=== PATIENT | female | born 1960 | race American Indian/Alaskan Native ===

== ENCOUNTER 2017-04-10 14:54 | Inpatient (IN) | payer MEDICARE ==
--- NOTE | 2017-04-10 17:17 | C.PDOC ---
History Of Present Illness 56 year old female brought in to the emergency department by parents requesting detox of heroin. Patient complains of heroin withdrawal, last used 2 bags intranasally about 1 hour ago. Typically she uses 10 bags daily. Also complaining of diarrhea that started yesterday. Denies any chest pain, abdominal pain, shortness of breath, or vomiting. Of note, patient is scheduled for dialysis tonight. No suicidal or homicidal ideation. Time Seen by Provider: 04/10/17 16:51 Chief Complaint (Nursing): Substance Abuse History Per: Patient History/Exam Limitations: no limitations Suicide/Self Injury Attempted (Context): None Modifying Factor(s): Other (Heroin) Associated Symptoms: denies: Suicidal Thoughts Additional History Per: Family (parents) Past Medical History Reviewed: Historical Data, Nursing Documentation, Vital Signs Vital Signs: Last Vital Signs Temp 98.3 F 04/10/17 20:13 Pulse 64 04/10/17 20:13 Resp 18 04/10/17 20:13 BP 140/89 04/10/17 20:13 Pulse Ox 96 04/10/17 20:13 - Medical History PMH: Hepatitis (C), HTN, End Stage Renal Disease Other PMH: Substance abuse Family History: States: No Known Family Hx - Social History Hx Alcohol Use: No Hx Substance Use: Yes - Immunization History Hx Tetanus Toxoid Vaccination: No Hx Influenza Vaccination: No Hx Pneumococcal Vaccination: No Review Of Systems Except As Marked, All Systems Reviewed And Found Negative. Cardiovascular: Negative for: Chest Pain Respiratory: Negative for: Shortness of Breath Gastrointestinal: Positive for: Diarrhea. Negative for: Vomiting, Abdominal Pain Psych: Positive for: Withdrawal (from heroin use). Negative for: Suicidal ideation (or homicidal ideation) Physical Exam - Physical Exam Appears: Non-toxic, No Acute Distress Skin: Normal Color, Warm, Dry Head: Atraumatic, Normacephalic Eye(s): bilateral: PERRL (pupils are pinpoint), EOMI Oral Mucosa: Moist Neck: Normal ROM, Supple Chest: Symmetrical Cardiovascular: Rhythm Regular Respiratory: Normal Breath Sounds, No Accessory Muscle Use Gastrointestinal/Abdominal: Normal Exam, Soft, No Tenderness, No Guarding, No Rebound Extremity: Normal ROM, No Tenderness, No Deformity, No Swelling, Other (AV fistula noted at left arm) Neurological/Psych: Oriented x3, Normal Speech Gait: Steady ED Course And Treatment - Laboratory Results Lab Interpretation: Abnormal (tox + benzo, opiates) Urine POC: Negative (UA neg.) ECG: Interpreted By Me, Viewed By Me ECG Rhythm: Sinus Rhythm ECG Interpretation: Normal Rate From EC O2 Sat by Pulse Oximetry: 96 (RA) Pulse Ox Interpretation: Normal Reevaluation Time: 19:54 Reassessment Condition: Improved - Physician Consult Information Outcome Of Conversation: 1800: d/w Dr. Ceja- pt's [facility]- usual dialysis orders are 4 hours, 2K+, 2 liter loss. 1929: d/w Dr. Laird- Neprhology [facility] - will order HD for tonight. 1999: d/w Crisis- initially admitted to Dr. Marrero , now admitted to Dr. Lozano- Psych, w Nephrology (Dr. Laird) and Medicine ( Hospitalists) to follow pt while in detox. Medical Decision Making Medical Decision Making: Time: 16:55 Initial Plan: * Urine drug screen * Alcohol serum * CMP * CBC * Urinalysis * HCG, qualitative * Crisis evaluation Time: 18:[address] Ceja, patients merchandising consultant, and patient receives dialysis on MWF nights. Usual dialysis is 4 hours, 2K, and decreased 2L. Disposition Doctor Will See Patient In The: Hospital Counseled Patient/Family Regarding: Studies Performed, Diagnosis - Disposition Disposition: HOSPITALIZED Disposition Time: 19:57 Condition: GOOD - Clinical Impression Clinical Impression: Heroin abuse, Renal dialysis status - Scribe Statement The provider has reviewed the documentation as recorded by the Shilpa Tee Provider Attestation: All medical record entries made by the Shilpa were at my direction and personally dictated by me. I have reviewed the chart and agree that the record accurately reflects my personal performance of the history, physical exam, medical decision making, and the department course for this patient. I have also personally directed, reviewed, and agree with the discharge instructions and disposition.
[2017-04-10 18:57] LABS: HCG,QUALITATIVE URINE NEGATIVE (NEGATIVE)
[2017-04-10 19:01] LABS: SQUAMOUS EPITHIAL 3 /hpf (0-5); URINE BACTERIA RARE (<OCC); URINE BILIRUBIN NEGATIVE (NEGATIVE); URINE BLOOD 1+ (NEGATIVE); URINE CLARITY Clear (Clear); URINE COLOR Straw (YELLOW); URINE GLUCOSE (UA) 2+ mg/dL (Normal); URINE LEUKOCYTE ESTERASE NEG Leu/uL (Negative); URINE NITRATE NEGATIVE (NEGATIVE); URINE PROTEIN 2+ mg/dL (NEGATIVE); URINE UROBILINOGEN NORMAL mg/dL (0.2-1.0)
[2017-04-10 19:13] LABS: BARBITURATES, UR NEGATIVE (NEGATIVE); BENZODIAZEPINES, UR POSITIVE (NEGATIVE); OPIATES, UR POSITIVE (NEGATIVE); PHENCYCLIDINE, UR NEGATIVE (NEGATIVE)
[2017-04-10] MEDS ORDERED: DiphenhydrAMINE 50 mg/ml Inj IVP ONE (21:00)
[2017-04-10 21:13] LABS: BASO # 0.1 K/uL (0.0-0.2); BASO % 0.9 % (0.0-2.0); EOS # 0.2 K/uL (0.0-0.7); EOS % 3.7 % (0.0-4.0); HEMOGLOBIN 10.8 g/dL (11.0-16.0); LYMPH % 34.7 % (20.0-40.0); MEAN CELL VOLUME 86.4 fL (81.0-99.0); MEAN CORPUSCULAR HGB CONC 32.4 g/dL (33.0-37.0); MONO # 0.4 K/uL (0.0-0.8); MONO % 7.6 % (0.0-10.0); NEUT # 3.1 K/uL (1.8-7.0); NEUT % 53.1 % (50.0-75.0); RBC 3.88 Mil/uL (3.80-5.20); RED CELL DISTRIBUTION WIDTH 14.6 % (11.5-14.5); WHITE BLOOD COUNT 5.8 K/uL (4.8-10.8)
[2017-04-10 21:27] LABS: ALB/GLOB RATIO 1.1 (1.0-2.1); ALBUMIN 3.8 g/dL (3.5-5.0); ALT/SGPT 34 U/L (9-52); AST/SGOT 33 U/L (14-36); BLOOD UREA NITROGEN 61 mg/dL (7-17); CALCIUM 8.8 mg/dl (8.6-10.4); GFR AFRICAN-AMERICAN 4; GFR NON-AFRICAN AMERICAN 3
[2017-04-10] MEDS ORDERED: Aluminum Hydroxide/Magnesium Hydroxide Susp (30 mL) PO PRN (22:52)
--- NOTE | 2017-04-11 05:44 | PCM.BM ---
<Deepti Stuart - Last Filed: 04/11/17 05:43> Treatment Plan Problems - Problems identified on initial assessmt Opiates Abuse Date Initiated: 04/10/17 Time Initiated: 23:45 Assessment reference: NA Status: Active Benzo Abuse Date Initiated: 04/10/17 Time Initiated: 23:45 Assessment reference: NA Status: Active Treatment assets and liabiliti Patient Assests: adapts well, ADL independent Patient Liabilities: substance abuse (Benzo, opiates), medical problems (Kidney dialysis) - Milieu Protocol Maintain good personal hygiene: daily Encourage regular showers, daily Remind patient to perform daily oral care Conduct patient checks and document Observation sheet: Q15 minutes Maintain personal safety: every shift Educate patient to report safety concerns to staff, every shift Monitor environment for contraband/sharps Medication safety: Monitor for expected outcome, potential side effects: every shift, Assess barriers to learning: every shift, Assess readiness for medication education: every shift <Deloris Weber - Last Filed: 04/12/17 08:14> Family Contact Family involvement: Yevgeniyliy/SO not involved - Goals for Treatment Patient goals for treatment: Complete detox and transition to outpatient counseling program. Discharge/Continuing Care - Education Needs Education Needs: Patient Medication, Patient Diagnosis/Disease Process, Patient Coping Skills, Patient Anger Management skills, Patient Placement options, Patient Community resources - Discharge Discharge Criteria: No longer exhibiting s/s of withdrawal, Reduction of target symptoms Discharge to:: Home, With Family - Treatment Team Participation Patient/Family/SO Statement: 04/12/17 08:15 "I wanna go to outpatient near my house..." Discussed with Family/SO: No Was Patient/Family/SO present at Treatment Team Meeting: Yes <Kati Lozano - Last Filed: 04/13/17 13:11> - Diagnosis (1) Opioid use disorder, severe, dependence Status: Acute Interventions: 04/13/17 13:11 * Assess 7x/week regarding severity of withdrawal * Educate regarding risks, benefits, side effects and alternatives of medications * Use Motivational Interviewing for abstinence * Use CBT for relapse prevention * Medication management for withdrawal symptoms * Encourage medication assisted treatment *
[2017-04-11] MEDS: Multiple Vitamins Tab PO SCH (10:35)
[2017-04-11] MEDS: Multivitamin Vitamin B Complex (Nephro-Vite) Tab PO SCH (10:35)
--- NOTE | 2017-04-11 11:08 | CP.PCM.CON ---
History of Present Illness - History of Present Illness History of Present Illness: Initial Nephrology Consultation: Assessment: Stable drug abuse Hypertensive Chronic Kidney Disease (I12.0) End stage renal disease (N18.6) dependence on hemodialysis (Z99.2) (MWF) via AVF Anemia (D64.9), Hyperphosphatemia (E83.39), Secondary Hyperparathyroidism (E21.1 ), HTN (I12.0) Plan: No acute need for dialysis today. Will plan for dialysis tomorrow. Continue with Nephrovite 1 tab/day. PRBC as needed for anemia. not on KAITLYNN as, last Hb 10.8 Continue with phos binders home dose BP control with meds as ordered. Glycemic control, Dialysis consistent diet Further work up/management as per primary team Dose meds/antibiotics (if needed) for ESRD status. Avoid fleets enema/magnesium based laxatives. Thanks for allowing me to participate in care of your patient. Will follow patient with you. Please call if any Qs Dr Ilan Raymundo Office: [phone] Chief Complaint;drug addiction HPI: Pt is a 56 F with hx of ESRD on hemodialysis (MWF) via AVF, last dialysis last night, chronic anemia, hyperphosphatemia, secondary hyperparathyroidism, hypertension, drug abuse presented with complaints of drug abuse and detox. she denies CP/SOB. has been on HD since 2017 @ [facility] Ceja ROS: Cardiovascular: No chest pain. Pulmonary: No shortness of breath Gastrointestinal: denies abdominal pain No nausea. No vomiting. Genitourinary: No pain while urinating. Denies blood in urine. All other negative Physical Examination: General Appearance: Comfortable, in no acute respiratory distress, co-operative . Vitals reviewed and noted as below Head; Atraumatic, normocephalic ENT: no ulcers no thrush. Tongue is midline. Oropharynx: no rash or ulcers. EYES: Pupils are equal, round and reactive to light accommodation. Eye muscles and extraocular movement intact. Sclera is anicteric. Neck; supple no lymphadenopathy, no thyromegaly or bruit Lungs: Normal respiratory rate/effort. Breath sounds bilateral equal and clear Heart: Normal rate. s1s2 normal. No rub or gallop. Extremities: 1+ edema. No varicose veins Neurological: Patient is alert, awake and oriented to person, place and time. No focal deficit. Strength bilateral appropriate and equal Skin: Warm and dry. Normal turgor. No rash. Palpitation: Normal elasticity for age Abdomen: Abdomen is soft. Bowel sounds +. There is no abdominal tenderness, no guarding/rigidity or organomegaly Psych: normal insight and normal affect/mood MSK: no joint tenderness or swelling. Digits and nails normal, no deformity : kidney or bladder not palpable Access: AVF Labs/imaging reviewed. Past medical history, past surgical history, family history, social history, allergy reviewed and noted as below Family Hx: no hx of CKD. Non contributory Past Patient History - Past Social History Smoking Status: Never Smoked - CARDIAC Hx Hypertension: Yes - PULMONARY Hx Tuberculosis: No - NEUROLOGICAL HX Cerebrovascular Accident: No Hx Seizures: No - RENAL Hx Dialysis: Yes - HEMATOLOGICAL/ONCOLOGICAL Hx Cancer: No Hx Human Immunodeficiency Virus (HIV): No - MUSCULOSKELETAL/RHEUMATOLOGICAL Hx Falls: No - GENITOURINARY/GYNECOLOGICAL Hx Sexually Transmitted Disorders: No - PSYCHIATRIC Hx Substance Use: Yes Meds Allergies/Adverse Reactions: Allergies Allergy/AdvReac Type Severity Reaction Status Date / Time No Known Allergies Allergy Verified 04/10/17 15:27 - Medications Medications: Current Medications Al Hydrox/Mg Hydrox/Simethicone (Maalox 30 Ml) 30 ml PO TID PRN PRN Reason: Indigestion / Heartburn Calcium Acetate (Phoslo) 667 mg PO BIDCC [facility] Last Admin: 04/11/17 09:10 Dose: 667 mg Clonidine HCl (Catapres) 0.2 mg PO TID [facility] Last Admin: 04/11/17 10:35 Dose: 0.2 mg Hydroxyzine HCl (Atarax) 25 mg PO Q6H PRN PRN Reason: Anxiety Loperamide HCl (Imodium) 2 mg PO Q8 PRN PRN Reason: Diarrhea Lorazepam (Ativan) 1 mg PO Q6H [facility] PRN Reason: Taper Stop: 04/15/17 23:54 Last Admin: 04/11/17 06:30 Dose: 1 mg Multivitamins (Hexavitamin) 1 tab PO DAILY [facility] Last Admin: 04/11/17 10:35 Dose: 1 tab Ondansetron HCl (Zofran Tab) 4 mg PO Q8 PRN PRN Reason: Nausea/Vomiting Trazodone HCl (Desyrel) 50 mg PO HS PRN PRN Reason: Insomnia Last Admin: 04/11/17 01:32 Dose: 50 mg Vitamin B Complex/Vit C/Folic Acid (Nephro-Viktor) 1 tab PO DAILY IRAM Last Admin: 04/11/17 10:35 Dose: 1 tab Results - Vital Signs Recent Vital Signs: Last Vital Signs Temp 98.6 F 04/11/17 10:00 Pulse 95 H 04/11/17 10:00 Resp 18 04/11/17 10:00 BP 135/89 04/11/17 10:00 Pulse Ox 95 04/11/17 10:00 - Labs Result Diagrams: 04/10/17 21:09 04/10/17 21:09 Labs: Laboratory Results - last 24 hr 04/10/17 04/10/17 04/10/17 18:52 18:52 21:09 WBC 5.8 RBC 3.88 Hgb 10.8 L Hct 33.5 L MCV 86.4 MCH 28.0 MCHC 32.4 L RDW 14.6 H Plt Count 190 MPV 9.0 Neut % (Auto) 53.1 Lymph % (Auto) 34.7 [place] % (Auto) 7.6 Eos % (Auto) 3.7 Baso % (Auto) 0.9 Neut # (Auto) 3.1 Lymph # (Auto) 2.0 [place] # (Auto) 0.4 Eos # (Auto) 0.2 Baso # (Auto) 0.1 Sodium Potassium Chloride Carbon Dioxide Anion Gap BUN Creatinine Est GFR ( Amer) Est GFR (Non-Af Amer) Random Glucose Calcium Total Bilirubin AST ALT Alkaline Phosphatase Total Protein Albumin Globulin Albumin/Globulin Ratio Urine Color Straw Urine Clarity Clear Urine pH 9.0 Ur Specific [place] 1.008 Urine Protein 2+ H Urine Glucose (UA) 2+ H Urine Ketones Negative Urine Blood 1+ H Urine Nitrate Negative Urine Bilirubin Negative Urine Urobilinogen Normal Ur Leukocyte Esterase Neg Urine WBC (Auto) 1 Urine RBC (Auto) 1 Ur Squamous Epith Cells 3 Urine Bacteria Rare Urine HCG, Qual Negative Urine Opiates Screen Positive H Urine Methadone Screen Negative Ur Barbiturates Screen Negative Ur Phencyclidine Scrn Negative Ur Amphetamines Screen Negative U Benzodiazepines Scrn Positive U Oth Cocaine Metabols Negative U Cannabinoids Screen Negative Alcohol, Quantitative 04/10/17 21:09 WBC RBC Hgb Hct MCV MCH MCHC RDW Plt Count MPV Neut % (Auto) Lymph % (Auto) [place] % (Auto) Eos % (Auto) Baso % (Auto) Neut # (Auto) Lymph # (Auto) [place] # (Auto) Eos # (Auto) Baso # (Auto) Sodium 140 Potassium 4.9 Chloride 97 L Carbon Dioxide 26 Anion Gap 22 H BUN 61 H Creatinine 12.6 H* Est GFR ( Amer) 4 Est GFR (Non-Af Amer) 3 Random Glucose 91 Calcium 8.8 Total Bilirubin 0.5 AST 33 ALT 34 Alkaline Phosphatase 61 Total Protein 7.2 Albumin 3.8 Globulin 3.5 Albumin/Globulin Ratio 1.1 Urine Color Urine Clarity Urine pH Ur Specific [place] Urine Protein Urine Glucose (UA) Urine Ketones Urine Blood Urine Nitrate Urine Bilirubin Urine Urobilinogen Ur Leukocyte Esterase Urine WBC (Auto) Urine RBC (Auto) Ur Squamous Epith Cells Urine Bacteria Urine HCG, Qual Urine Opiates Screen Urine Methadone Screen Ur Barbiturates Screen Ur Phencyclidine Scrn Ur Amphetamines Screen U Benzodiazepines Scrn U Oth Cocaine Metabols U Cannabinoids Screen Alcohol, Quantitative < 10
--- NOTE | 2017-04-11 14:25 | PCM.PSYCH ---
Initial Psychiatric Evaluation - Initial Psychiatric Evaluation Type of Admission: Voluntary Legal Status: Capacity Chief Complaint (in patient's own words): " I want to get clean" History of Present Illness and Precipitating Events: 56 yo black F, single, with 5 children (34 yo, 25 yo, 23 yo, 20 yo,14 yo), lives together with her brother and his two children, and her younger son and daughter, unemployed on disability, with PMHx significant for ESRD who presented to the ED requesting detox for heroin. Patient states that she was sober for 18 years until relapse this past november. She estimates snorting 10- 20 bags/day of heroin and 3-4 tablets of 1 mg xanax/day since december. Patient explains that she had a jail relationship with her boyfriend for several years. Both her and her boyfriend served about 10 years of senior living sentence each. She remained clean throughout that entire period and form when she was released. Once her boyfriend was released around this past november, he is reported to have cheated, took her house and not let her come back and to have done multiple other things that she did not like. Thus leading to her relapse. She denies any cocaine, pain killer, ETOH or tobacco use. No other complaints are noted at this time. She currently does not have any plans after discharge. She would just like to return to her home in [place]. Detox Hx: x4 in the past Rehab Hx: x2 addict[facility] rehab center in [facility] Medical Hx: Hep C, ESRD on HD (MWF) (dx in 2017), HTN, s/p katelin Medications: As listed Psych Hx: depression Fam Hx: sister also uses heroin Current Medications: Active Medications Generic Name Dose Route Start Last Admin Trade Name Freq PRN Reason Stop Dose Admin Al Hydrox/Mg Hydrox/Simethicone 30 ml 04/10/17 22:52 Maalox 30 Ml PO TID PRN Indigestion / Heartburn Calcium Acetate 667 mg 04/11/17 08:00 04/11/17 09:10 Phoslo PO 667 mg BIDCC IRAM Administration Clonidine HCl 0.2 mg 04/11/17 10:00 04/11/17 14:13 Catapres PO Not Given TID IRAM Hydroxyzine HCl 25 mg 04/10/17 22:46 Atarax PO Q6H PRN Anxiety Loperamide HCl 2 mg 04/10/17 22:52 Imodium PO Q8 PRN Diarrhea Lorazepam 1 mg 04/10/17 23:55 04/11/17 12:47 Ativan PO 04/15/17 23:54 Not Given Q6H IRAM Taper Multivitamins 1 tab 04/11/17 10:00 04/11/17 10:35 Hexavitamin PO 1 tab DAILY IRAM Administration Ondansetron HCl 4 mg 04/10/17 22:52 Zofran Tab PO Q8 PRN Nausea/Vomiting Trazodone HCl 50 mg 04/10/17 22:46 04/11/17 01:32 Desyrel PO 50 mg HS PRN Administration Insomnia Vitamin B Complex/Vit C/Folic Acid 1 tab 04/11/17 10:00 04/11/17 10:35 Nephro-Viktor PO 1 tab DAILY IRAM Administration Past Psychiatric History - Past Psychiatric History History of Abuse: denies History of ETOH/Drug Use: (+) heroin History of Family Illness: Sister uses heroin Pertinent Medical Hx (Current Medical&Sleep Prob, Allergies): Allergies Allergy/AdvReac Type Severity Reaction Status Date / Time No Known Allergies Allergy Verified 04/10/17 15:27 Calcium Acetate 667 mg PO TID 04/10/17 Diclofenac Sodium [Voltaren] 100 gm TP DAILY 04/10/17 Vit B Cmplx 3/Folic AC/C/Biot [Lauren-Viktor Rx] 1 tab PO DAILY 04/10/17 cloNIDine [clonidine HCl] 0.2 mg PO TID 04/10/17 Review of Systems - Psychiatric Psychiatric: Depression. absent: Anhedonia Additional comments: (+) sleep difficulty Mental Status Examination - Personal Presentation Personal Presentation: Looks stated age - Affect Affect: Constricted, Depressed - Motor Activity Motor Activity: Calm - Reliability in Providing Information Reliability in Providing Information: Fair - Speech Speech: Organized - Mood Mood: Depressed - Formal Thought Process Formal Thought Process: No Impairment - Obsessions/Compulsions Obsessions: No Compulsions: No - Cognitive Functions Orientation: Person, Place, Situation, Time Sensorium: Alert Attention/Concentration: Attentive Abstract Thinking: [place] Estimate of Intelligence: Below average Judgement: Intact, as evidence by: Insight regarding need for hospitalization Memory: Recent intact, as evidence by: Ability to recall events of the day, Remote intact, as evidenced by: Abilit to recall sig. life events - Risk Risk: Withdrawal, Diminished functioning - Strength & Assets Inventory Strength & Assets Inventory: Life experience, Cooperative - Limitations Limitations: Other (ESRD on HD) DSM 5 DX - DSM 5 DSM 5 Diagnosis: Opioid Withdrawal Opioid Use d/o - severe Sedative hypnotic use d/o - moderate Major depression - moderate - Recommended/Plan of Treatment Treatment Recommendations and Plan of Treatment: Plan for TYRON intake: Methadone detox Gabapentin for augmentation As needed medications All risks, benefits and alternatives of the meds discussed, and the pt agreed and understood. Attend groups and activities Supportive therapy and psychoeducation [place] for abstinence CBT for relapse prevention Encourage MAT Refer to rehab or IOP, and self-help groups Attend groups and activities Individual therapy daily Psychoeducation and support daily Encourage compliance with meds and after care Refer to outpatient program Teach healthy lifestyle methods, i.e. diet, exercise, meditation 34 min Projected ELOS: 4-5 days Prognosis: good with treatment Discharge Plan and Discharge Criteria: Rehab and MAT - Smoking Cessation Smoking Cessation Initiated: No Reason for not providing: does not smoke
[2017-04-12] MEDS: Multiple Vitamins Tab PO SCH (10:58)
[2017-04-12] MEDS: Multivitamin Vitamin B Complex (Nephro-Vite) Tab PO SCH (10:58)
--- NOTE | 2017-04-12 13:19 | PCM.PYCHPN ---
Psychiatric Progress Note - Psychiatric Progress Note Patient seen today, length of contact: 16 min Patient Chief Complaint: "Tired" Problems Identified/Issues Discussed: The pt is seen, chart reviewed, case discussed with staff. The pt is compliant with medications and reports no side-effects. Symptoms are improving but needs more time to stabilize. After care discussed, support and psychoeducation given. Going to dialysis w/o problems Medication Change: Yes (detox changes daily) Medical Record Reviewed: Yes Mental Status Examination - Cognitive Function Orientation: Person, Place, Situation, Time Memory: Intact Attention: Poor Concentration: Poor Association: WNL Fund of Knowledge: WNL - Mood Mood: Depressed - Affect Affect: Constricted, Depressed - Speech Speech: Appropriate - Formal Thought Process Formal Thought Process: No Impairment - Suicidal Ideation Suicidal Ideation: No - Homicidal Ideation Homicidal Ideation: No Goal/Treatment Plan - Goal/Treatment Plan Need for Continued Stay: Discharge may exacerbated symptoms, Severe functional impairment Progress Toward Problem(s) and Goals/Treatment Plan: Methadone detox Ativan detox Lexapro for anxiety and depression As needed medications All risks, benefits and alternatives of the meds discussed, and the pt agreed and understood. Attend groups and activities Supportive therapy and psychoeducation [place] for abstinence CBT for relapse prevention Encourage MAT Refer to rehab or IOP, and self-help groups Attend groups and activities Individual therapy daily Psychoeducation and support daily Encourage compliance with meds and after care Refer to outpatient program Teach healthy lifestyle methods, i.e. diet, exercise, meditation
[2017-04-12] MEDS ORDERED: DiphenhydrAMINE 50 mg/ml Inj IVP ONE (13:58)
--- NOTE | 2017-04-12 17:28 | CP.PCM.PN ---
Subjective - Date & Time of Evaluation Date of Evaluation: 04/12/17 Time of Evaluation: 17:26 - Subjective Subjective: Nephrology Consultation: Assessment: Stable drug abuse Hypertensive Chronic Kidney Disease (I12.0) End stage renal disease (N18.6) dependence on hemodialysis (Z99.2) (MWF) via AVF Anemia (D64.9), Hyperphosphatemia (E83.39), Secondary Hyperparathyroidism (E21.1 ), HTN (I12.0) Plan: Will plan for dialysis Today as ordered. Continue with Nephrovite 1 tab/day. PRBC as needed for anemia. not on KAITLYNN as, last Hb 10.8 Continue with phos binders home dose BP control with meds as ordered. Glycemic control, Dialysis consistent diet Further work up/management as per primary team Dose meds/antibiotics (if needed) for ESRD status. Avoid fleets enema/magnesium based laxatives. Thanks for allowing me to participate in care of your patient. Will follow patient with you. Please call if any Qs Dr Ilan Raymundo Office: [phone] Chief Complaint;drug addiction HPI: Pt is a 56 F with hx of ESRD on hemodialysis (MWF) via AVF, last dialysis last night, chronic anemia, hyperphosphatemia, secondary hyperparathyroidism, hypertension, drug abuse presented with complaints of drug abuse and detox. she denies CP/SOB. has been on HD since 2017 @ [facility] with Dr Ceja ROS: Cardiovascular: No chest pain. Pulmonary: No shortness of breath Gastrointestinal: c/o Abdomen pain and nausea asking for Benadryl IV. Genitourinary: No pain while urinating. Denies blood in urine. All other negative Physical Examination: Seen on dialysis General Appearance: uncomfortable, in no acute respiratory distress, co- operative . Vitals reviewed and noted as below Head; Atraumatic, normocephalic ENT: no ulcers no thrush. Tongue is midline. Oropharynx: no rash or ulcers. EYES: Pupils are equal, round and reactive to light accommodation. Eye muscles and extraocular movement intact. Sclera is anicteric. Neck; supple no lymphadenopathy, no thyromegaly or bruit Lungs: Normal respiratory rate/effort. Breath sounds bilateral equal and clear Heart: Normal rate. s1s2 normal. No rub or gallop. Extremities: no edema. No varicose veins Neurological: Patient is alert, awake and oriented to person, place and time. No focal deficit. Strength bilateral appropriate and equal Skin: Warm and dry. Normal turgor. No rash. Palpitation: Normal elasticity for age Abdomen: Abdomen is soft. Bowel sounds +. There is no abdominal tenderness, no guarding/rigidity or organomegaly Psych: normal insight and normal affect/mood MSK: no joint tenderness or swelling. Digits and nails normal, no deformity : kidney or bladder not palpable Access: AVF Labs/imaging reviewed. Past medical history, past surgical history, family history, social history, allergy reviewed and noted as below Family Hx: no hx of CKD. Non contributory Objective - Vital Signs/Intake and Output Vital Signs (last 24 hours): Temp Pulse Resp BP Pulse Ox 98.4 F 68 16 117/83 100 04/12/17 16:50 04/12/17 16:50 04/12/17 16:50 04/12/17 16:50 04/12/17 16:50 - Medications Medications: Current Medications Al Hydrox/Mg Hydrox/Simethicone (Maalox 30 Ml) 30 ml PO TID PRN PRN Reason: Indigestion / Heartburn Calcium Acetate (Phoslo) 667 mg PO BIDCC [facility] Last Admin: 04/12/17 07:54 Dose: 667 mg Clonidine HCl (Catapres) 0.2 mg PO TID [facility] Last Admin: 04/12/17 13:31 Dose: Not Given Escitalopram Oxalate (Lexapro) 5 mg PO DAILY [facility] Last Admin: 04/12/17 10:58 Dose: 5 mg Hydroxyzine HCl (Atarax) 25 mg PO Q6H PRN PRN Reason: Anxiety Loperamide HCl (Imodium) 2 mg PO Q8 PRN PRN Reason: Diarrhea Lorazepam (Ativan) 1 mg PO Q8H [facility] PRN Reason: Taper Stop: 04/15/17 23:54 Last Admin: 04/12/17 15:29 Dose: Not Given Methadone HCl (Methadone) 10 mg PO Q24H [facility] PRN Reason: Taper Stop: 04/16/17 09:59 Last Admin: 04/12/17 10:58 Dose: 10 mg Multivitamins (Hexavitamin) 1 tab PO DAILY [facility] Last Admin: 04/12/17 10:58 Dose: 1 tab Ondansetron HCl (Zofran Tab) 4 mg PO Q8 PRN PRN Reason: Nausea/Vomiting Trazodone HCl (Desyrel) 50 mg PO HS PRN PRN Reason: Insomnia Last Admin: 04/11/17 01:32 Dose: 50 mg Vitamin B Complex/Vit C/Folic Acid (Nephro-Viktor) 1 tab PO DAILY [facility] Last Admin: 04/12/17 10:58 Dose: 1 tab - Labs Labs: 04/10/17 21:09 04/10/17 21:09
[2017-04-13] MEDS: Multiple Vitamins Tab PO SCH (10:41)
[2017-04-13] MEDS: Multivitamin Vitamin B Complex (Nephro-Vite) Tab PO SCH (10:42)
--- NOTE | 2017-04-13 11:23 | PCM.PYCHPN ---
Psychiatric Progress Note - Psychiatric Progress Note Patient seen today, length of contact: 16 min Patient Chief Complaint: "Sleepy" Problems Identified/Issues Discussed: The pt is seen, chart reviewed, case discussed with staff. Support given, CBT and TN used briefly No new symptoms reported, improving slowly and needs more time No SEs from medications, risks discussed. After care discussed - she is uninterested and unmotivated. She is also lethargic likely from meds and medical issues Medication Change: Yes (detox changes daily) Medical Record Reviewed: Yes Mental Status Examination - Cognitive Function Orientation: Person, Place, Situation, Time Memory: Intact Attention: Poor Concentration: Poor Association: WNL Fund of Knowledge: WNL - Mood Mood: Depressed - Affect Affect: Constricted, Depressed - Speech Speech: Appropriate - Formal Thought Process Formal Thought Process: No Impairment - Suicidal Ideation Suicidal Ideation: No - Homicidal Ideation Homicidal Ideation: No Goal/Treatment Plan - Goal/Treatment Plan Need for Continued Stay: Discharge may exacerbated symptoms, Severe functional impairment Progress Toward Problem(s) and Goals/Treatment Plan: Methadone detox Ativan detox Lexapro for anxiety and depression As needed medications All risks, benefits and alternatives of the meds discussed, and the pt agreed and understood. Attend groups and activities Supportive therapy and psychoeducation TN for abstinence CBT for relapse prevention Encourage MAT Refer to rehab or IOP, and self-help groups Attend groups and activities Individual therapy daily Psychoeducation and support daily Encourage compliance with meds and after care Refer to outpatient program Teach healthy lifestyle methods, i.e. diet, exercise, meditation
--- NOTE | 2017-04-13 15:38 | CP.PCM.PN ---
Subjective - Date & Time of Evaluation Date of Evaluation: 04/13/17 Time of Evaluation: 15:38 - Subjective Subjective: Nephrology Consultation: Assessment: Stable drug abuse Hypertensive Chronic Kidney Disease (I12.0) End stage renal disease (N18.6) dependence on hemodialysis (Z99.2) (MWF) via AVF Anemia (D64.9), Hyperphosphatemia (E83.39), Secondary Hyperparathyroidism (E21.1 ), HTN (I12.0) Plan: Will plan for dialysis Tomorrow as ordered. Continue with Nephrovite 1 tab/day. PRBC as needed for anemia. on ESAwith HD Continue with phos binders home dose BP control with meds as ordered. Glycemic control, Dialysis consistent diet Further work up/management as per primary team Dose meds/antibiotics (if needed) for ESRD status. Avoid fleets enema/magnesium based laxatives. Thanks for allowing me to participate in care of your patient. Will follow patient with you. Please call if any Qs Dr Ilan Raymundo Office: [phone] Chief Complaint;drug addiction HPI: Pt is a 56 F with hx of ESRD on hemodialysis (MWF) via AVF, last dialysis last night, chronic anemia, hyperphosphatemia, secondary hyperparathyroidism, hypertension, drug abuse presented with complaints of drug abuse and detox. she denies CP/SOB. has been on HD since 2017 @ [facility] with Dr Ceja ROS: Cardiovascular: No chest pain. Pulmonary: No shortness of breath Gastrointestinal: no Abdomen pain and nausea asking for Benadryl IV with HD. Genitourinary: No pain while urinating. Denies blood in urine. All other negative Physical Examination: General Appearance: uncomfortable, in no acute respiratory distress, co- operative . Vitals reviewed and noted as below Head; Atraumatic, normocephalic ENT: no ulcers no thrush. Tongue is midline. Oropharynx: no rash or ulcers. EYES: Pupils are equal, round and reactive to light accommodation. Eye muscles and extraocular movement intact. Sclera is anicteric. Neck; supple no lymphadenopathy, no thyromegaly or bruit Lungs: Normal respiratory rate/effort. Breath sounds bilateral equal and clear Heart: Normal rate. s1s2 normal. No rub or gallop. Extremities: no edema. No varicose veins Neurological: Patient is alert, awake and oriented to person, place and time. No focal deficit. Strength bilateral appropriate and equal Skin: Warm and dry. Normal turgor. No rash. Palpitation: Normal elasticity for age Abdomen: Abdomen is soft. Bowel sounds +. There is no abdominal tenderness, no guarding/rigidity or organomegaly Psych: normal insight and normal affect/mood MSK: no joint tenderness or swelling. Digits and nails normal, no deformity : kidney or bladder not palpable Access: AVF Labs/imaging reviewed. Past medical history, past surgical history, family history, social history, allergy reviewed and noted as below Family Hx: no hx of CKD. Non contributory Objective - Vital Signs/Intake and Output Vital Signs (last 24 hours): Temp Pulse Resp BP Pulse Ox 98.8 F 62 20 126/83 96 04/13/17 13:04 04/13/17 13:04 04/13/17 13:04 04/13/17 13:04 04/13/17 13:04 - Medications Medications: Current Medications Acetaminophen (Tylenol 325mg Tab) 650 mg PO Q6 PRN PRN Reason: pain Last Admin: 04/12/17 21:01 Dose: 650 mg Al Hydrox/Mg Hydrox/Simethicone (Maalox 30 Ml) 30 ml PO TID PRN PRN Reason: Indigestion / Heartburn [facility] Last Admin: 04/13/17 10:42 Dose: 667 mg Clonidine HCl (Catapres) 0.2 mg PO TID [facility] Last Admin: 04/13/17 14:08 Dose: 0.2 mg Epoetin Vickey (Procrit) 4,000 unit IV [facility] Escitalopram Oxalate (Lexapro) 5 mg PO DAILY [facility] Last Admin: 04/13/17 10:41 Dose: 5 mg Hydroxyzine HCl (Atarax) 25 mg PO Q6H PRN PRN Reason: Anxiety Last Admin: 04/12/17 22:09 Dose: 25 mg Loperamide HCl (Imodium) 2 mg PO Q8 PRN PRN Reason: Diarrhea Lorazepam (Ativan) 1 mg PO Q8H [facility] PRN Reason: Taper Stop: 04/15/17 23:54 Last Admin: 04/13/17 08:04 Dose: 1 mg Methadone HCl (Methadone) 10 mg PO Q24H [facility] PRN Reason: Taper Stop: 04/16/17 09:59 Last Admin: 04/13/17 10:42 Dose: 10 mg Multivitamins (Hexavitamin) 1 tab PO DAILY [facility] Last Admin: 04/13/17 10:41 Dose: 1 tab Ondansetron HCl (Zofran Tab) 4 mg PO Q8 PRN PRN Reason: Nausea/Vomiting Trazodone HCl (Desyrel) 50 mg PO HS PRN PRN Reason: Insomnia Last Admin: 04/12/17 22:09 Dose: 50 mg Vitamin B Complex/Vit C/Folic Acid (Nephro-Viktor) 1 tab PO DAILY [facility] Last Admin: 04/13/17 10:42 Dose: 1 tab - Labs Labs: 04/10/17 21:09 04/10/17 21:09
[2017-04-14] MEDS ORDERED: DiphenhydrAMINE 50 mg/ml Inj IVP PRN (06:00)
[2017-04-14] MEDS ORDERED: EPOETIN ALFA 4,000 UNIT/ML ML Dialysis IV SCH (09:00)
[2017-04-14] MEDS: Multiple Vitamins Tab PO SCH (09:30)
[2017-04-14] MEDS: Multivitamin Vitamin B Complex (Nephro-Vite) Tab PO SCH (09:34)
--- NOTE | 2017-04-14 11:37 | CP.PCM.PN ---
Subjective - Date & Time of Evaluation Date of Evaluation: 04/14/17 Time of Evaluation: 11:37 - Subjective Subjective: Nephrology Consultation: Assessment: Stable drug abuse Hypertensive Chronic Kidney Disease (I12.0) End stage renal disease (N18.6) dependence on hemodialysis (Z99.2) (MWF) via AVF Anemia (D64.9), Hyperphosphatemia (E83.39), Secondary Hyperparathyroidism (E21.1 ), HTN (I12.0) Plan: Will plan for dialysis Today as ordered. Continue with Nephrovite 1 tab/day. PRBC as needed for anemia. on KAITLYNN with HD Continue with phos binders home dose BP control with meds as ordered. Glycemic control, Dialysis consistent diet Further work up/management as per primary team Dose meds/antibiotics (if needed) for ESRD status. Avoid fleets enema/magnesium based laxatives. Thanks for allowing me to participate in care of your patient. Will follow patient with you. Please call if any Qs Dr Ilan Raymundo Office: [phone] Chief Complaint;drug addiction HPI: Pt is a 56 F with hx of ESRD on hemodialysis (MWF) via AVF, last dialysis last night, chronic anemia, hyperphosphatemia, secondary hyperparathyroidism, hypertension, drug abuse presented with complaints of drug abuse and detox. she denies CP/SOB. has been on HD since 2017 @ [facility] with Dr Ceja ROS: Cardiovascular: No chest pain. Pulmonary: No shortness of breath Gastrointestinal: no Abdomen pain and nausea asking for Benadryl IV with HD. Genitourinary: No pain while urinating. Denies blood in urine. All other negative Physical Examination: General Appearance: comfortable, in no acute respiratory distress, co-operative . Vitals reviewed and noted as below Head; Atraumatic, normocephalic ENT: no ulcers no thrush. Tongue is midline. Oropharynx: no rash or ulcers. EYES: Pupils are equal, round and reactive to light accommodation. Eye muscles and extraocular movement intact. Sclera is anicteric. Neck; supple no lymphadenopathy, no thyromegaly or bruit Lungs: Normal respiratory rate/effort. Breath sounds bilateral equal and clear Heart: Normal rate. s1s2 normal. No rub or gallop. Extremities: no edema. No varicose veins Neurological: Patient is alert, awake and oriented to person, place and time. No focal deficit. Strength bilateral appropriate and equal Skin: Warm and dry. Normal turgor. No rash. Palpitation: Normal elasticity for age Abdomen: Abdomen is soft. Bowel sounds +. There is no abdominal tenderness, no guarding/rigidity or organomegaly Psych: normal insight and normal affect/mood MSK: no joint tenderness or swelling. Digits and nails normal, no deformity : kidney or bladder not palpable Access: AVF Labs/imaging reviewed. Past medical history, past surgical history, family history, social history, allergy reviewed and noted as below Family Hx: no hx of CKD. Non contributory Objective - Vital Signs/Intake and Output Vital Signs (last 24 hours): Temp Pulse Resp BP Pulse Ox 98.6 F 80 18 155/92 H 96 04/14/17 09:00 04/14/17 09:00 04/14/17 09:00 04/14/17 09:00 04/14/17 09:00 - Medications Medications: Current Medications Acetaminophen (Tylenol 325mg Tab) 650 mg PO Q6 PRN PRN Reason: pain Last Admin: 04/12/17 21:01 Dose: 650 mg Al Hydrox/Mg Hydrox/Simethicone (Maalox 30 Ml) 30 ml PO TID PRN PRN Reason: Indigestion / Heartburn Calcium Acetate (Phoslo) 667 mg PO BIDCC [facility] Last Admin: 04/14/17 09:30 Dose: 667 mg Clonidine HCl (Catapres) 0.2 mg PO TID [facility] Last Admin: 04/14/17 09:31 Dose: 0.2 mg Diphenhydramine HCl (Benadryl) 25 mg IVP MWF PRN PRN Reason: Other Epoetin Vickey (Procrit) 4,000 unit IV [facility] Escitalopram Oxalate (Lexapro) 5 mg PO DAILY [facility] Last Admin: 04/14/17 09:31 Dose: 5 mg Hydroxyzine HCl (Atarax) 25 mg PO Q6H PRN PRN Reason: Anxiety Last Admin: 04/14/17 00:24 Dose: 25 mg Loperamide HCl (Imodium) 2 mg PO Q8 PRN PRN Reason: Diarrhea Lorazepam (Ativan) 1 mg PO Q12H [facility] PRN Reason: Taper Stop: 04/15/17 23:54 Last Admin: 04/14/17 00:22 Dose: 1 mg Methadone HCl (Methadone) 5 mg PO Q24H [facility] PRN Reason: Taper Stop: 04/16/17 09:59 Last Admin: 04/14/17 09:31 Dose: 5 mg Multivitamins (Hexavitamin) 1 tab PO DAILY [facility] Last Admin: 04/14/17 09:30 Dose: 1 tab Ondansetron HCl (Zofran Tab) 4 mg PO Q8 PRN PRN Reason: Nausea/Vomiting Trazodone HCl (Desyrel) 50 mg PO HS PRN PRN Reason: Insomnia Last Admin: 04/12/17 22:09 Dose: 50 mg Vitamin B Complex/Vit C/Folic Acid (Nephro-Viktor) 1 tab PO DAILY [facility] Last Admin: 04/14/17 09:34 Dose: 1 tab - Labs Labs: 04/10/17 21:09 04/10/17 21:09
--- NOTE | 2017-04-14 12:42 | PCM.PYCHPN ---
Psychiatric Progress Note - Psychiatric Progress Note Patient seen today, length of contact: 17 min Patient Chief Complaint: "I'm still sleepy" Problems Identified/Issues Discussed: The pt is seen, chart reviewed, case discussed with staff. Support given, CBT and IN used briefly No new symptoms reported, improving slowly and needs more time No SEs from medications, risks discussed. After care discussed - she is uninterested and unmotivated. Patient remains very lethargic today, still likely from meds and medical issues She requests Benadryll 25mg for pruritis that she gets during dialysis treatments. Medication Change: Yes (detox changes daily) Medical Record Reviewed: Yes Mental Status Examination - Cognitive Function Orientation: Person, Place, Situation, Time Memory: Intact Attention: Poor Concentration: Poor Association: WNL Fund of Knowledge: WNL - Mood Mood: Depressed - Affect Affect: Constricted, Depressed - Speech Speech: Soft - Formal Thought Process Formal Thought Process: No Impairment - Suicidal Ideation Suicidal Ideation: No - Homicidal Ideation Homicidal Ideation: No Goal/Treatment Plan - Goal/Treatment Plan Need for Continued Stay: Discharge may exacerbated symptoms, Severe functional impairment Progress Toward Problem(s) and Goals/Treatment Plan: Methadone detox Ativan detox Lexapro for anxiety and depression As needed medications All risks, benefits and alternatives of the meds discussed, and the pt agreed and understood. Attend groups and activities Supportive therapy and psychoeducation IN for abstinence CBT for relapse prevention Encourage MAT Refer to rehab or IOP, and self-help groups Attend groups and activities Individual therapy daily Psychoeducation and support daily Encourage compliance with meds and after care Refer to outpatient program Teach healthy lifestyle methods, i.e. diet, exercise, meditation
[2017-04-14 15:57] VITALS: RESP 18
--- NOTE | 2017-04-15 08:19 | PCM.PYCHDC ---
Mental Status Examination - Mental Status Examination Orientation: Person, Place, Situation, Time Memory: Intact Mood: Neutral Affect: Constricted Speech: Soft Attention: WNL Concentration: WNL Association: WNL Fund of Knowledge: WNL Formal Thought Process: No Impairment Description of patient's judgement and insight: good, fair Psychotic Thoughts and Behaviors: denies any AVH Suicidal Ideation: No Current Homicidal Ideation?: No Discharge Summary - Discharge Note Reason for Hospitalization: 56 yo black F, single, with 5 children (34 yo, 25 yo, 23 yo, 20 yo,14 yo), lives together with her brother and his two children, and her younger son and daughter, unemployed on disability, with PMHx significant for ESRD who presented to the ED requesting detox for heroin. Patient states that she was sober for 18 years until relapse this past November. She estimates snorting 10- 20 bags/day of heroin and 3-4 tablets of 1 mg xanax/day since December. Patient explains that she had a intermediate relationship with her boyfriend for several years. Both her and her boyfriend served about 10 years of custodial sentence each. She remained clean throughout that entire period and form when she was released. Once her boyfriend was released around this past November, he is reported to have cheated, took her house and not let her come back and to have done multiple other things that she did not like. Thus leading to her relapse. She denies any cocaine, pain killer, ETOH or tobacco use. No other complaints are noted at this time. She currently does not have any plans after discharge. She would just like to return to her home in [place]. Consultations:: List each consultation separately and include: 1. Reason for request. 2. Findings. 3. Follow-up Summary of Hospital Course include:: 1. Description of specific treatment plan utilized for patients during their course of treatmen. 2. Summarize the time- course for resolution of acute symptoms and/or regressed behaviors. 3. Describe issues identified and worked on during hospitalization. 4. Describe medication utilized. 5. Describe medical problems identified and treated. 6. Reassessment of suicide risk Summary of Hospital Course: During the course of her stay, patient (pt) started progressively improving and she no longer remained irritable and anxious. She tolerated the medications and denied any sweating, tremors or cramps or any other side effects upon discharge. She started attending groups and meetings and started socializing. She denied any feelings of hopelessness, helplessness, and worthlessness, denied any problem with the sleep or appetite, denied suicidal ideation or homicidal ideation. Pt denied any auditory or visual hallucinations. Patient remained calm and cooperative and remained compliant with the medications. Patient tolerated the medications very well and denied any side effects. 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 Pt was educated and counseled about the risks of drinking and abusing drugs. Pt was educated and counseled to go to the ER or call 911 if pt develop suicidal ideation or homicidal ideation, worsening of symptoms or severe side effects of the meds. Prescriptions/Medication Reconciliation: Escitalopram [Lexapro] 5 mg PO DAILY #30 tab Multivitamins [Hexavitamin] 1 tab PO DAILY #30 tab traZODone [Desyrel] 50 mg PO HS PRN #30 tab PRN Reason: Insomnia - Smoking Cessation Smoking Cessation Medication prescribed: No - Antipsychotic Medications Pt discharged on 2 or more routine antipsychotic medications: No
[2017-04-15] MEDS: Multivitamin Vitamin B Complex (Nephro-Vite) Tab PO SCH (10:13)
[2017-04-15] MEDS: Multiple Vitamins Tab PO SCH (10:13)
[2017-04-15 11:34] VITALS: TEMP 98.2
[2017-04-15 13:14] VITALS: BP 152/105; PULSE 81; O2SAT 95
== END 2017-04-15 14:15 | disposition home or self-care (01) | DRG 895 ==
LOC: C.ER 14:54 → C.9E 19:51 → C.7D 21:56
PROVIDERS: ADMIT Psychiatry & Neurology Psychiatry; ATTEND Psychiatry & Neurology Psychiatry
PROC: HZ59ZZZ Individual Psychotherapy for Substance Abuse Treatment, Supportive (ICD-10-PCS; 2017-04-10)
PROC: HZ52ZZZ Individual Psychotherapy for Substance Abuse Treatment, Cognitive-Behavioral (ICD-10-PCS; 2017-04-10)
PROC: HZ57ZZZ Individual Psychotherapy for Substance Abuse Treatment, Motivational Enhancement (ICD-10-PCS; 2017-04-10)
PROC: HZ2ZZZZ Detoxification Services for Substance Abuse Treatment (ICD-10-PCS; 2017-04-10)
PROC: 5A1D70Z Performance of Urinary Filtration, Intermittent, Less than 6 Hours Per Day (ICD-10-PCS; principal; 2017-04-11)
PROC: 5A1D70Z Performance of Urinary Filtration, Intermittent, Less than 6 Hours Per Day (ICD-10-PCS; 2017-04-14)
DX: F11.23 Opioid dependence with withdrawal (principal); E83.39 Other disorders of phosphorus metabolism; I12.0 Hypertensive chronic kidney disease with stage 5 chronic kidney disease or end stage renal disease; N18.6 End stage renal disease; N25.81 Secondary hyperparathyroidism of renal origin; D64.9 Anemia, unspecified; F32.9 Major depressive disorder, single episode, unspecified; F41.9 Anxiety disorder, unspecified; Z99.2 Dependence on renal dialysis

== ENCOUNTER 2017-12-20 13:47 | Inpatient (IN) | payer MEDICARE ==
[2017-12-20 13:53] VITALS: BMI 33.3
[2017-12-20 15:11] LABS: BASO # 0.1 K/uL (0.0-0.2); EOS # 0.4 K/uL (0.0-0.7); EOS % 6.9 % (0.0-4.0); HEMOGLOBIN 11.4 g/dL (11.0-16.0); LYMPH # 1.7 K/uL (1.0-4.3); LYMPH % 31.1 % (20.0-40.0); MEAN CELL VOLUME 85.4 fL (81.0-99.0); MEAN CORPUSCULAR HEMOGLOBIN 28.4 pg (27.0-31.0); MEAN CORPUSCULAR HGB CONC 33.2 g/dL (33.0-37.0); MEAN PLATELET VOLUME 8.8 fL (7.2-11.7); MONO # 0.4 K/uL (0.0-0.8); RBC 4.01 Mil/uL (3.80-5.20); RED CELL DISTRIBUTION WIDTH 13.3 % (11.5-14.5); WHITE BLOOD COUNT 5.6 K/uL (4.8-10.8)
[2017-12-20 15:13] LABS: SQUAMOUS EPITHIAL 4 /hpf (0-5); URINE BILIRUBIN NEGATIVE (NEGATIVE); URINE BLOOD NEGATIVE (NEGATIVE); URINE CLARITY Clear (Clear); URINE COLOR Yellow (YELLOW); URINE GLUCOSE (UA) 2+ mg/dL (Normal); URINE LEUKOCYTE ESTERASE NEG Leu/uL (Negative); URINE PROTEIN 2+ mg/dL (NEGATIVE); URINE UROBILINOGEN NORMAL mg/dL (0.2-1.0)
[2017-12-20 15:30] LABS: BARBITURATES, UR NEGATIVE (NEGATIVE); PHENCYCLIDINE, UR NEGATIVE (NEGATIVE)
--- NOTE | 2017-12-20 15:30 | C.PDOC ---
History Of Present Illness 56 F with hx of htn, hep C, and ESRD on hemodialysis (MWF), last dialysis two days ago, presents to the ER requesting heroin detox. Pt notes she feels well and is asymptomatic. Notes she is due for her dialysis tonight. No IVDA. Denies SI, HI, seizures, chest pain, sob, leg swelling, or any other complaints. Time Seen by Provider: 12/20/17 14:22 Chief Complaint (Nursing): Substance Abuse History Per: Patient History/Exam Limitations: no limitations Past Medical History Reviewed: Historical Data, Nursing Documentation, Vital Signs Vital Signs: Last Vital Signs Temp 98.3 F 12/20/17 13:53 Pulse 87 12/20/17 13:53 Resp 18 12/20/17 13:53 BP 125/88 12/20/17 13:53 Pulse Ox 96 12/20/17 13:53 - Medical History PMH: Hepatitis (C), HTN, End Stage Renal Disease, Chronic Kidney Disease Denies: Diabetes, HIV, Seizures, Sexually Transmitted Disease Surgical History: Cholecystectomy - [facility] (04/10/17) DETOXIFICATION SERVICES FOR SUBSTANCE ABUSE TREATMENT (04/10/17) INDIV PSYCHOTHERAPY FOR SUBSTANCE ABUSE TREATMENT, SUPPORT (04/10/17) INDIV PSYCHOTHERAPY FOR SUBSTANCE ABUSE, COGNIT[facility]IOR[facility] (04/10/17) INDIV PSYCHOTHERAPY FOR SUBSTANCE ABUSE, MOTIVATION ENHANCE (04/10/17) Family History: States: No Known Family Hx - Social History Hx Alcohol Use: No Hx Substance Use: Yes (heroin) - Immunization History Hx Tetanus Toxoid Vaccination: No Hx Influenza Vaccination: No Hx Pneumococcal Vaccination: No Review Of Systems Constitutional: Negative for: Fever Respiratory: Negative for: Shortness of Breath Gastrointestinal: Negative for: Nausea, Vomiting Musculoskeletal: Negative for: Back Pain Psych: Negative for: Suicidal ideation, Withdrawal Physical Exam - Physical Exam Appears: Non-toxic, No Acute Distress Skin: Warm, Dry, No Rash, No Jaundice Head: Atraumatic Eye(s): bilateral: Normal Inspection, EOMI Nose: Normal Oral Mucosa: Moist Lips: Normal Appearing Neck: Normal ROM, Supple Chest: Symmetrical Cardiovascular: Rhythm Regular Respiratory: Normal Breath Sounds, No Accessory Muscle Use Gastrointestinal/Abdominal: Soft, No Tenderness Back: Normal Inspection Extremity: Normal ROM, Pedal Edema, No Deformity Neurological/Psych: Oriented x3, Normal Speech ED Course And Treatment - Laboratory Results Result Diagrams: 12/20/17 15:04 12/20/17 15:04 O2 Sat by Pulse Oximetry: 96 Pulse Ox Interpretation: Normal (RA) Progress Note: Case discused with Dr Raymundo, who agrees to consult and give her dialysis. Case discussed with Dr Archer, agreed upon plan and admission. Pt was seen and evaluated by fuller brush worker who discussed case with Dr Lozano and agreed upon plan and admission. Pt remains asymptomatic. Disposition - Disposition Disposition: HOSPITALIZED Disposition Time: 18:00 Condition: STABLE - Clinical Impression Clinical Impression: Opioid use disorder, severe, dependence, ESRD (end stage renal disease) on dialysis - Scribe Statement The provider has reviewed the documentation as recorded by the Scribe (Bao Engel) All medical record entries made by the Scribe were at my direction and perso talha dictated by me. I have reviewed the chart and agree that the record accurately reflects my personal performance of the history, physical exam, medical decision making, and the department course for this patient. I have also personally directed, reviewed, and agree with the discharge instructions and disposition.
[2017-12-20 15:31] LABS: BENZODIAZEPINES, UR POSITIVE (NEGATIVE); OPIATES, UR POSITIVE (NEGATIVE)
[2017-12-20 15:53] LABS: ALB/GLOB RATIO 1.1 (1.0-2.1); ALBUMIN 4.1 g/dL (3.5-5.0); ALT/SGPT 40 U/L (9-52); AST/SGOT 58 U/L (14-36); BLOOD UREA NITROGEN 39 mg/dL (7-17); CALCIUM 9.9 mg/dl (8.6-10.4)
[2017-12-20 16:22] LABS: GFR NON-AFRICAN AMERICAN 4
--- NOTE | 2017-12-20 23:52 | PCM.BM ---
Treatment Plan Problems - Problems identified on initial assessmt potential for opiates withdrawal Date Initiated: 12/20/17 Time Initiated: 23:52 Assessment reference: NA Status: Active Treatment assets and liabiliti Patient Assests: adapts well, ADL independent, negotiates basic needs Patient Liabilities: substance abuse
--- NOTE | 2017-12-21 01:27 | PCM.BM ---
<Galo Mclaughlin - Last Filed: 12/21/17 01:26> Treatment Plan Problems - Problems identified on initial assessmt Problem 1 Date Initiated: 12/21/17 Time Initiated: 01:26 Assessment reference: NA Status: Active Treatment assets and liabiliti Patient Assests: adapts well, educated, ADL independent, negotiates basic needs, cognitively intact Patient Liabilities: substance abuse - Milieu Protocol Maintain good personal hygiene: daily Encourage regular showers, daily Remind patient to perform daily oral care, daily Assist patient to perform ADL's Maintain personal safety: every shift Educate patient to report safety concerns to staff, every shift Monitor environment for contraband/sharps Medication safety: Monitor for expected outcome, potential side effects: every shift, Assess barriers to learning: every shift, Assess readiness for medication education: every shift <Kati Lozano - Last Filed: 12/21/17 08:44> Treatment Plan Problems - Problems identified on initial assessmt Problem 1 Date Initiated: 12/21/17 Time Initiated: 01:26 Assessment reference: NA Status: Active - Diagnosis (1) Sedative, hypnotic or anxiolytic use disorder, severe, dependence Status: Acute Interventions: 12/21/17 08:44 * Assess 7x/week regarding severity of withdrawal * Educate regarding risks, benefits, side effects and alternatives of medications * Use Motivational Interviewing for abstinence * Use CBT for relapse prevention * Medication management for withdrawal symptoms * Encourage medication assisted treatment * (2) Opioid use disorder, severe, dependence Status: Acute Interventions: 12/21/17 08:44 * Assess 7x/week regarding severity of withdrawal * Educate regarding risks, benefits, side effects and alternatives of m edications * Use Motivational Interviewing for abstinence * Use CBT for relapse prevention * Medication management for withdrawal symptoms * Encourage medication assisted treatment * <Deloris Weber - Last Filed: 12/25/17 13:43> Treatment Plan Problems - Problems identified on initial assessmt Problem 1 Date Initiated: 12/21/17 Time Initiated: 01:26 Assessment reference: NA Status: Active Family Contact Family involvement: Famliy/SO not involved - Goals for Treatment Patient goals for treatment: Complete detox and transition to NA meetings. Discharge/Continuing Care - Education Needs Education Needs: Patient Medication, Patient Diagnosis/Disease Process, Patient Coping Skills, Patient Anger Management skills, Patient Placement options, Patient Community resources - Discharge Discharge Criteria: Ability to care for self, No longer exhibiting s/s of withdrawal, Reduction of target symptoms Discharge to:: Home, With Family - Treatment Team Participation Patient/Family/SO Statement: 12/25/17 13:42 "I have a good network in . I don't have time to go to counseling with my dialysis schedule..." Discussed with Family/SO: No Was Patient/Family/SO present at Treatment Team Meeting: Yes
--- NOTE | 2017-12-21 08:43 | PCM.PSYCH ---
Initial Psychiatric Evaluation - Initial Psychiatric Evaluation Type of Admission: Voluntary Legal Status: Capacity Chief Complaint (in patient's own words): "I'm not OK" History of Present Illness and Precipitating Events: She is seen, chart reviewed and case discussed. She is known from a previous admission. This is a 57 yo AAF, single, with 5 children (34 yo, 25 yo, 23 yo, 20 yo,14 yo), lives together with her brother and his two children, and her younger son and daughter, unemployed on disability, with PMHx significant for ESRD who presented to the ED requesting detox for heroin again. Patient states that she was sober for 18 years until relapse again, detox but relapsed quickly. She estimates snorting 10-15 bags/day of heroin and 4-5 tablets of 1 mg xanax/day. She denies any cocaine, painkiller, ETOH or tobacco use. No other complaints are noted at this time but low mood and anxiety. No MAT and she is not interested Not suicidal or homicidal, no AVH or delusions. Detox Hx: x5 in the past Rehab Hx: x2 [facility] in [facility] Medical Hx: Hep C, ESRD on HD (MWF) (dx in 2017), HTN Psych Hx: depression Fam Hx: sister also uses heroin Current Medications: Active Medications Generic Name Dose Route Start Last Admin Trade Name Freq PRN Reason Stop Dose Admin Clonidine HCl 0.1 mg 12/20/17 21:09 Catapres PO Q4H PRN Symptoms of alcohol withdrawl Folic Acid 1 mg 12/21/17 10:00 Folic Acid PO DAILY [facility] Influenza Virus Vaccine 60 mcg 12/23/17 10:00 Fluzone Quad [id number] IM 12/23/17 10:01 .ONCE ONE Lorazepam 1 mg 12/20/17 22:00 12/21/17 06:10 Ativan PO 12/25/17 21:59 Not Given Q4H IRAM Taper Lorazepam 1 mg 12/20/17 21:09 12/21/17 00:10 Ativan PO 1 mg Q4H PRN Administration Symptoms of alcohol withdrawl Multivitamins 1 tab 12/21/17 10:00 Hexavitamin PO DAILY [facility] Pneumococcal Polyvalent Vaccine 0.5 ml 12/22/17 10:00 Pneumovax 23 Vaccine IM 12/22/17 10:01 .ONCE ONE Thiamine HCl 100 mg 12/21/17 10:00 Vitamin B1 Tab PO DAILY IRAM Trazodone HCl 50 mg 12/20/17 21:09 Desyrel PO HS PRN Insomnia Past Psychiatric History - Past Psychiatric History Previous Treatment History: None Pertinent Medical Hx (Current Medical&Sleep Prob, Allergies): Allergies Allergy/AdvReac Type Severity Reaction Status Date / Time No Known Allergies Allergy Verified 12/20/17 13:53 Calcium Acetate 667 mg PO TID 04/10/17 Diclofenac Sodium [Voltaren] 100 gm TP DAILY 04/10/17 Vit B Comp No.3/Folic/C/Biotin [Lauren-Viktor Rx Tablet] 1 tab PO DAILY 04/10/17 cloNIDine [Catapres] 0.2 mg PO TID 04/10/17 Calcium Acetate [Phoslo] 667 mg PO BIDCC tab 04/14/17 Epoetin Vickey [Procrit] 4,000 unit IV MWF ml 04/14/17 Escitalopram [Lexapro] 5 mg PO DAILY #30 tab 04/14/17 Multivitamins [Hexavitamin] 1 tab PO DAILY #30 tab 04/14/17 traZODone [Desyrel] 50 mg PO HS PRN #30 tab 04/14/17 Review of Systems - Neurological Neurological: UNREMARKABLE - Psychiatric Psychiatric: Abnormal Sleep Pattern, Anhedonia, Anxiety, Auditory Hallucinations, Depression, Difficulty Concentrating, Irritability, Mood Swings. absent: Hallucinations, Homicidal Ideation, Paranoia, Suicidal Ideation Mental Status Examination - Personal Presentation Personal Presentation: Looks stated age (unkempt, fatigued) - Affect Affect: Blunted - Motor Activity Motor Activity: Calm - Reliability in Providing Information Reliability in Providing Information: Fair - Speech Speech: Organized - Mood Mood: Depressed, Anxious - Formal Thought Process Formal Thought Process: No Impairment - Cognitive Functions Orientation: Person, Place, Situation, Time Sensorium: Alert Attention/Concentration: Easily distracted Estimate of Intelligence: Average Judgement: Intact, as evidence by: Insight regarding need for hospitalization Memory: Recent intact, as evidence by: Ability to recall events of the day, Remote intact, as evidenced by: Abilit to recall sig. life events - Risk Risk: Withdrawal, Diminished functioning - Strength & Assets Inventory Strength & Assets Inventory: Family support, Cooperative - Limitations Limitations: Other DSM 5 DX - DSM 5 DSM 5 Diagnosis: Opioid Withdrawal Opioid Use d/o - severe Sedative hypnotic or anxiolytic withdrawal Sedative hypnotic or anxiolytic use d/o - severe Major depression - moderate - Recommended/Plan of Treatment Treatment Recommendations and Plan of Treatment: Methadone detox for opioids Ativan detox for benzos As needed medications All risks, benefits and alternatives of the meds discussed, and the pt agreed and understood. Attend groups and activities Supportive therapy and psychoeducation AK for abstinence CBT for relapse prevention Encourage MAT Refer to rehab or IOP, and self-help groups Attend groups and activities Individual therapy daily Psychoeducation and support daily Encourage compliance with meds and after care Refer to outpatient program Teach healthy lifestyle methods, i.e. diet, exercise, meditation Nephro help appreciated Will attend HD 3x/week 34 min Projected ELOS: 12/25/2017 - Smoking Cessation Smoking Cessation Initiated: Yes
[2017-12-21] MEDS ORDERED: DiphenhydrAMINE 50 mg/ml Inj IVP STA (10:12)
[2017-12-21] MEDS: Multiple Vitamins Tab PO SCH (10:18)
[2017-12-21] MEDS ORDERED: DiphenhydrAMINE 50 mg/ml Inj IVP ONE ×2 (11:15→11:30)
--- NOTE | 2017-12-21 15:46 | CP.PCM.CON ---
History of Present Illness - History of Present Illness History of Present Illness: Nephrology Consultation Note: Assessment: Stable drug abuse Hypertensive Chronic Kidney Disease (I12.0) End stage renal disease (N18.6) dependence on hemodialysis (Z99.2) (MWF) via AVF Anemia (D64.9), Hyperphosphatemia (E83.39), Secondary Hyperparathyroidism (E21.1), HTN (I12.0) Plan: Will plan for dialysis Today as ordered. Continue with Nephrovite 1 tab/day. next HD sat then MWF next week onwards PRBC as needed for anemia. Not on KAITLYNN with HD as last Hb 11.4 Continue with phos binders as ordered BP control with meds as ordered. Glycemic control, Dialysis consistent diet Further work up/management as per primary team Dose meds/antibiotics (if needed) for ESRD status. Avoid fleets enema/magnesium based laxatives. pt need to abstain from drugs. need lifestyle modifications Thanks for allowing me to participate in care of your patient. Will follow patient with you. Please call if any Qs Dr Ilan Raymundo Office: [phone] Chief Complaint; drug addiction reason for consult: ESRD HPI: Pt is a 57 F with hx of ESRD on hemodialysis (MWF) via AVF, chronic anemia, hyperphosphatemia, secondary hyperparathyroidism, hypertension, drug abuse (heroin) presented with complaints of drug abuse and detox. she denies CP/SOB. has been on HD since 2017 @ [facility] with Dr Ceja asking for benadryl 50 mg IV for itching, says gets it all the time during dialysis ROS: Cardiovascular: No chest pain. Pulmonary: No shortness of breath Gastrointestinal: no Abdomen pain and nausea asking for Benadryl IV with HD. Genitourinary: No pain while urinating. Denies blood in urine. All other negative Physical Examination: seen on HD General Appearance: comfortable, in no acute respiratory distress, co-operative . Vitals reviewed and noted as below Head; Atraumatic, normocephalic ENT: no ulcers no thrush. Tongue is midline. Oropharynx: no rash or ulcers. EYES: Pupils are equal, round and reactive to light accommodation. Eye muscles and extraocular movement intact. Sclera is anicteric. Neck; supple no lymphadenopathy, no thyromegaly or bruit Lungs: Normal respiratory rate/effort. Breath sounds bilateral equal and clear Heart: Normal rate. s1s2 normal. No rub or gallop. Extremities: no edema. No varicose veins Neurological: Patient is alert, awake and oriented to person, place and time. No focal deficit. Strength bilateral appropriate and equal Skin: Warm and dry. Normal turgor. No rash. Palpitation: Normal elasticity for age Abdomen: Abdomen is soft. Bowel sounds +. There is no abdominal tenderness, no guarding/rigidity or organomegaly Psych: normal insight and normal affect/mood MSK: no joint tenderness or swelling. Digits and nails normal, no deformity : kidney or bladder not palpable Access: AVF Labs/imaging reviewed. Past medical history, past surgical history, family history, social history, allergy reviewed and noted as below Family Hx: no hx of CKD. Non contributory Past Patient History - Past Medical History & Family History Past Medical History?: No - Past Social History Smoking Status: Never Smoked - CARDIAC Hx Hypertension: Yes - PULMONARY Hx Tuberculosis: No - NEUROLOGICAL Hx Seizures: No - RENAL Hx Chronic Kidney Disease: Yes - HEMATOLOGICAL/ONCOLOGICAL Hx Human Immunodeficiency Virus (HIV): No - MUSCULOSKELETAL/RHEUMATOLOGICAL Hx Falls: No - GENITOURINARY/GYNECOLOGICAL Hx Sexually Transmitted Disorders: No - PSYCHIATRIC Hx Substance Use: Yes - SURGICAL HISTORY Hx Cholecystectomy: Yes Meds Allergies/Adverse Reactions: Allergies Allergy/AdvReac Type Severity Reaction Status Date / Time No Known Allergies Allergy Verified 12/20/17 13:53 - Medications Medications: Current Medications Clonidine HCl (Catapres) 0.1 mg PO Q4H PRN PRN Reason: Symptoms of alcohol withdrawl Diphenhydramine HCl (Benadryl) 50 mg IVP TTS PRN PRN Reason: Itching / Pruritus Folic Acid (Folic Acid) 1 mg PO DAILY [facility] Last Admin: 12/21/17 10:18 Dose: Not Given Heparin Sodium (Porcine) (Heparin) 2,000 units IVP TTS [facility] Last Admin: 12/21/17 12:09 Dose: 2,000 units Influenza Virus Vaccine (Fluzone Quad [id number]) 60 mcg IM .ONCE ONE Stop: 12/23/17 10:01 Lorazepam (Ativan) 1 mg PO Q4H [facility]; Taper Stop: 12/25/17 21:59 Last Admin: 12/21/17 15:05 Dose: 1 mg Lorazepam (Ativan) 1 mg PO Q4H PRN PRN Reason: Symptoms of alcohol withdrawl Last Admin: 12/21/17 00:10 Dose: 1 mg Multivitamins (Hexavitamin) 1 tab PO DAILY [facility] Last Admin: 12/21/17 10:18 Dose: Not Given Pneumococcal Polyvalent Vaccine (Pneumovax 23 Vaccine) 0.5 ml IM .ONCE ONE Stop: 12/22/17 10:01 Sevelamer Carbonate (Renvela) 800 mg PO TIDCC [facility] Thiamine HCl (Vitamin B1 Tab) 100 mg PO DAILY [facility] Last Admin: 12/21/17 10:18 Dose: Not Given Trazodone HCl (Desyrel) 50 mg PO HS PRN PRN Reason: Insomnia Results - Vital Signs Recent Vital Signs: Last Vital Signs Temp 99.3 F 12/21/17 14:43 Pulse 80 12/21/17 14:43 Resp 18 12/21/17 14:43 BP 138/94 H 12/21/17 14:43 Pulse Ox 97 12/21/17 14:43 - Labs Result Diagrams: 12/20/17 15:04 12/20/17 15:04 Labs: Laboratory Results - last 24 hr 12/20/17 12/21/17 15:04 11:05 Sodium 139 Potassium 5.2 Chloride 97 L Carbon Dioxide 30 Anion Gap 17 BUN 39 H Creatinine 11.1 H* Est GFR ( Amer) 4 Est GFR (Non-Af Amer) 4 Random Glucose 116 H Calcium 9.9 Phosphorus 4.2 Magnesium 2.1 Total Bilirubin 0.6 AST 58 H D ALT 40 Alkaline Phosphatase 78 Total Protein 7.9 Albumin 4.1 Globulin 3.8 Albumin/Globulin Ratio 1.1 Alcohol, Quantitative < 10 Hep Bs Antigen Negative
[2017-12-22] MEDS: Multiple Vitamins Tab PO SCH (09:14)
[2017-12-22] MEDS ORDERED: Pneumococcal 23-Valent Vaccine IM ONE (10:00)
--- NOTE | 2017-12-22 12:33 | CP.PCM.PN ---
Subjective - Date & Time of Evaluation Date of Evaluation: 12/22/17 Time of Evaluation: 12:31 - Subjective Subjective: Nephrology Consultation Note: Assessment: Stable heroin drug abuse Hypertensive Chronic Kidney Disease (I12.0) End stage renal disease (N18.6) dependence on hemodialysis (Z99.2) (MWF) via AVF Anemia (D64.9), Hyperphosphatemia (E83.39), Secondary Hyperparathyroidism (E21.1), HTN (I12.0) Plan: Will plan for dialysis tomorrow as ordered. Continue with Nephrovite 1 tab/day. next HD sat then MWF next week onwards PRBC as needed for anemia. Not on KAITLYNN with HD as last Hb 11.4 Continue with phos binders as ordered BP control with meds as ordered. clonidine as needed. Glycemic control, Dialysis consistent diet Further work up/management as per primary team Dose meds/antibiotics (if needed) for ESRD status. Avoid fleets enema/magnesium based laxatives. pt need to abstain from drugs. need lifestyle modifications Thanks for allowing me to participate in care of your patient. Will follow patient with you. Please call if any Qs Dr Ilan Raymundo Office: [phone] Chief Complaint; drug addiction reason for consult: ESRD HPI: Pt is a 57 F with hx of ESRD on hemodialysis (MWF) via AVF, chronic anemia, hyperphosphatemia, secondary hyperparathyroidism, hypertension, drug abuse (heroin) presented with complaints of drug abuse and detox. she denies CP/SOB. has been on HD since 2017 @ [facility] with Dr Ceja asking for benadryl 50 mg IV for itching, says gets it all the time during di alysis ROS: Cardiovascular: No chest pain. Pulmonary: No shortness of breath Gastrointestinal: no Abdomen pain and nausea asking for Benadryl IV with HD. Genitourinary: No pain while urinating. Denies blood in urine. All other negative Physical Examination: General Appearance: comfortable, in no acute respiratory distress, co-operative . Vitals reviewed and noted as below Head; Atraumatic, normocephalic ENT: no ulcers no thrush. Tongue is midline. Oropharynx: no rash or ulcers. EYES: Pupils are equal, round and reactive to light accommodation. Eye muscles and extraocular movement intact. Sclera is anicteric. Neck; supple no lymphadenopathy, no thyromegaly or bruit Lungs: Normal respiratory rate/effort. Breath sounds bilateral equal and clear Heart: Normal rate. s1s2 normal. No rub or gallop. Extremities: no edema. No varicose veins Neurological: Patient is alert, awake and oriented to person, place and time. No focal deficit. Strength bilateral appropriate and equal Skin: Warm and dry. Normal turgor. No rash. Palpitation: Normal elasticity for age Abdomen: Abdomen is soft. Bowel sounds +. There is no abdominal tenderness, no guarding/rigidity or organomegaly Psych: normal insight and normal affect/mood MSK: no joint tenderness or swelling. Digits and nails normal, no deformity : kidney or bladder not palpable Access: AVF Labs/imaging reviewed. Past medical history, past surgical history, family history, social history, allergy reviewed and noted as below Family Hx: no hx of CKD. Non contributory Objective - Vital Signs/Intake and Output Vital Signs (last 24 hours): Temp Pulse Resp BP Pulse Ox 98.2 F 66 18 146/96 H 97 12/22/17 10:00 12/22/17 10:00 12/22/17 10:00 12/22/17 10:00 12/22/17 10:00 - Medications Medications: Current Medications Clonidine HCl (Catapres) 0.1 mg PO Q4H PRN PRN Reason: Symptoms of alcohol withdrawl Diphenhydramine HCl (Benadryl) 50 mg IVP TTS PRN PRN Reason: Itching / Pruritus Folic Acid (Folic Acid) 1 mg PO DAILY [facility] Last Admin: 12/22/17 09:14 Dose: 1 mg Heparin Sodium (Porcine) (Heparin) 2,000 units IVP TTS [facility] Last Admin: 12/21/17 12:09 Dose: 2,000 units Influenza Virus Vaccine (Fluzone Quad [id number]) 60 mcg IM .ONCE ONE Stop: 12/23/17 10:01 Lorazepam (Ativan) 1 mg PO Q6H [facility]; Taper Stop: 12/25/17 21:59 Last Admin: 12/22/17 09:15 Dose: 1 mg Lorazepam (Ativan) 1 mg PO Q4H PRN PRN Reason: Symptoms of alcohol withdrawl Last Admin: 12/21/17 19:20 Dose: 1 mg Methadone HCl (Methadone) 15 mg PO Q24H [facility]; Taper Stop: 12/26/17 09:59 Last Admin: 12/22/17 10:57 Dose: 15 mg Multivitamins (Hexavitamin) 1 tab PO DAILY [facility] Last Admin: 12/22/17 09:14 Dose: 1 tab Sevelamer Carbonate (Renvela) 800 mg PO TIDCC [facility] Last Admin: 12/22/17 09:11 Dose: 800 mg Thiamine HCl (Vitamin B1 Tab) 100 mg PO DAILY [facility] Last Admin: 12/22/17 09:14 Dose: 100 mg Trazodone HCl (Desyrel) 50 mg PO HS PRN PRN Reason: Insomnia - Labs Labs: 12/20/17 15:04 12/20/17 15:04
--- NOTE | 2017-12-22 14:46 | PCM.PYCHPN ---
Psychiatric Progress Note - Psychiatric Progress Note Patient seen today, length of contact: 16 min Patient Chief Complaint: "I'm tired" Problems Identified/Issues Discussed: The pt is seen, chart reviewed, case discussed with staff. The pt is compliant with medications and reports no side-effects. She is somewhat drowsy, and tired, though. Symptoms are improving but needs more time to stabilize. Support given, psycho-education provided. After care discussed. Medication Change: Yes (detox changes daily) Medical Record Reviewed: Yes Mental Status Examination - Cognitive Function Orientation: Person, Place, Situation, Time Memory: Intact Attention: Poor Concentration: Poor Association: WNL Fund of Knowledge: Poor - Mood Mood: Depressed, Anxious - Affect Affect: Blunted - Speech Speech: Appropriate - Formal Thought Process Formal Thought Process: No Impairment - Suicidal Ideation Suicidal Ideation: No - Homicidal Ideation Homicidal Ideation: No Goal/Treatment Plan - Goal/Treatment Plan Need for Continued Stay: Severe depression anxiety, Discharge may exacerbated symptoms, Severe functional impairment Progress Toward Problem(s) and Goals/Treatment Plan: Methadone detox Ativan detox Remeron for depression As needed medications All risks, benefits and alternatives of the meds discussed, and the pt agreed and understood. Attend groups and activities Supportive therapy and psychoeducation ID for abstinence CBT for relapse prevention Encourage MAT Refer to rehab or IOP, and self-help groups Attend groups and activities Individual therapy daily Psychoeducation and support daily Encourage compliance with meds and after care Refer to outpatient program Teach healthy lifestyle methods, i.e. diet, exercise, meditation
[2017-12-23] MEDS ORDERED: Influenza Vaccine 60 MCG/0.5 ML SYR (3 yr & up) IM ONE (10:00)
[2017-12-23] MEDS ORDERED: DiphenhydrAMINE 50 mg/ml Inj IVP PRN (11:30)
[2017-12-23] MEDS: Multiple Vitamins Tab PO SCH (13:42)
--- NOTE | 2017-12-23 14:31 | CP.PCM.PN ---
Subjective - Date & Time of Evaluation Date of Evaluation: 12/23/17 Time of Evaluation: 14:30 - Subjective Subjective: Nephrology Consultation Note: Assessment: Stable heroin drug abuse Hypertensive Chronic Kidney Disease (I12.0) End stage renal disease (N18.6) dependence on hemodialysis (Z99.2) (MWF) via AVF Anemia (D64.9), Hyperphosphatemia (E83.39), Secondary Hyperparathyroidism (E21.1), HTN (I12.0) Plan: Will plan for dialysis today as ordered. Continue with Nephrovite 1 tab/day. HD as MWF next week onwards PRBC as needed for anemia. Not on KAITLYNN with HD as last Hb 11.4 Continue with phos binders as ordered BP control with meds as ordered. clonidine as needed. Glycemic control, Dialysis consistent diet Further work up/management as per primary team Dose meds/antibiotics (if needed) for ESRD status. Avoid fleets enema/magnesium based laxatives. pt need to abstain from drugs. need lifestyle modifications Thanks for allowing me to participate in care of your patient. Will follow patient with you. Please call if any Qs Dr Ilan Raymundo Office: [phone] Chief Complaint; drug addiction reason for consult: ESRD HPI: Pt is a 57 F with hx of ESRD on hemodialysis (MWF) via AVF, chronic anemia, hyperphosphatemia, secondary hyperparathyroidism, hypertension, drug abuse (heroin) presented with complaints of drug abuse and detox. she denies CP/SOB. has been on HD since 2017 @ [facility] with Dr Ceja asking for benadryl 50 mg IV for itching, says gets it all the time during dialysis ROS: not much communicating Cardiovascular: No chest pain. Pulmonary: No shortness of breath Gastrointestinal: no Abdomen pain and nausea asking for Benadryl IV with HD. Genitourinary: No pain while urinating. Denies blood in urine. All other negative Physical Examination: General Appearance: comfortable, in no acute respiratory distress, co-operative . Vitals reviewed and noted as below Head; Atraumatic, normocephalic ENT: no ulcers no thrush. Tongue is midline. Oropharynx: no rash or ulcers. EYES: Pupils are equal, round and reactive to light accommodation. Eye muscles and extraocular movement intact. Sclera is anicteric. Neck; supple no lymphadenopathy, no thyromegaly or bruit Lungs: Normal respiratory rate/effort. Breath sounds bilateral equal and clear Heart: Normal rate. s1s2 normal. No rub or gallop. Extremities: no edema. No varicose veins Neurological: Patient is alert, awake and oriented to person, place and time. No focal deficit. Strength bilateral appropriate and equal Skin: Warm and dry. Normal turgor. No rash. Palpitation: Normal elasticity for age Abdomen: Abdomen is soft. Bowel sounds +. There is no abdominal tenderness, no guarding/rigidity or organomegaly Psych: normal insight and normal affect/mood MSK: no joint tenderness or swelling. Digits and nails normal, no deformity : kidney or bladder not palpable Access: AVF Labs/imaging reviewed. Past medical history, past surgical history, family history, social history, allergy reviewed and noted as below Family Hx: no hx of CKD. Non contributory Objective - Vital Signs/Intake and Output Vital Signs (last 24 hours): Temp Pulse Resp BP Pulse Ox 98 F 98 H 12 128/104 H 99 12/23/17 09:15 12/23/17 12:40 12/23/17 09:15 12/23/17 12:40 12/23/17 09:15 - Medications Medications: Current Medications Clonidine HCl (Catapres) 0.1 mg PO Q4H PRN PRN Reason: Symptoms of alcohol withdrawl Last Admin: 12/23/17 10:26 Dose: 0.1 mg Clonidine HCl (Catapres) 0.2 mg PO Q8 IRAM Last Admin: 12/23/17 13:41 Dose: 0.2 mg Dicyclomine HCl (Bentyl) 10 mg PO Q6H PRN PRN Reason: GI distress Last Admin: 12/22/17 21:06 Dose: 10 mg Diphenhydramine HCl (Benadryl) 50 mg IVP TTS PRN PRN Reason: Itching / Pruritus Last Admin: 12/23/17 09:22 Dose: 50 mg Diphenhydramine HCl (Benadryl) 25 mg PO Q4H PRN PRN Reason: Allergy symptoms Folic Acid (Folic Acid) 1 mg PO DAILY [facility] Last Admin: 12/23/17 13:42 Dose: 1 mg Heparin Sodium (Porcine) (Heparin) 2,000 units IVP TTS [facility] Last Admin: 12/23/17 09:32 Dose: 2,000 units Lorazepam (Ativan) 1 mg PO Q8H IRAM; Taper Stop: 12/25/17 21:59 Last Admin: 12/23/17 14:29 Dose: 1 mg Lorazepam (Ativan) 1 mg PO Q4H PRN PRN Reason: Symptoms of alcohol withdrawl Last Admin: 12/22/17 16:49 Dose: 1 mg Methadone HCl (Methadone) 10 mg PO Q24H IR[facility]; Taper Stop: 12/26/17 09:59 Last Admin: 12/23/17 13:42 Dose: 10 mg Mirtazapine (Remeron) 15 mg PO HS IRAM Last Admin: 12/22/17 21:06 Dose: 15 mg Multivitamins (Hexavitamin) 1 tab PO DAILY IRAM Last Admin: 12/23/17 13:42 Dose: 1 tab Sevelamer Carbonate (Renvela) 800 mg PO TIDCC [facility] Last Admin: 12/23/17 13:45 Dose: Not Given Thiamine HCl (Vitamin B1 Tab) 100 mg PO DAILY [facility] Last Admin: 12/23/17 13:42 Dose: 100 mg Trazodone HCl (Desyrel) 50 mg PO HS PRN PRN Reason: Insomnia - Labs Labs: 12/20/17 15:04 12/20/17 15:04
[2017-12-24] MEDS: Multiple Vitamins Tab PO SCH (09:30)
--- NOTE | 2017-12-24 12:40 | CP.PCM.PN ---
Subjective - Date & Time of Evaluation Date of Evaluation: 12/24/17 Time of Evaluation: 12:39 - Subjective Subjective: Nephrology Consultation Note: Assessment: Stable heroin drug abuse Hypertensive Chronic Kidney Disease (I12.0) End stage renal disease (N18.6) dependence on hemodialysis (Z99.2) (MWF) via AVF Anemia (D64.9), Hyperphosphatemia (E83.39), Secondary Hyperparathyroidism (E21.1), HTN (I12.0) Plan: Will plan for dialysis MWF as ordered. Continue with Nephrovite 1 tab/day. PRBC as needed for anemia. Not on KAITLYNN with HD as last Hb 11.4 Continue with phos binders as ordered BP control with meds as ordered. clonidine as needed. Glycemic control, Dialysis consistent diet Further work up/management as per primary team Dose meds/antibiotics (if needed) for ESRD status. Avoid fleets enema/magnesium based laxatives. pt need to abstain from drugs. need lifestyle modifications Thanks for allowing me to participate in care of your patient. Will follow patient with you. Please call if any Qs Dr Ilan Raymundo Office: [phone] Chief Complaint; drug addiction reason for consult: ESRD HPI: Pt is a 57 F with hx of ESRD on hemodialysis (MWF) via AVF, chronic anemia, hyperphosphatemia, secondary hyperparathyroidism, hypertension, drug abuse (heroin) presented with complaints of drug abuse and detox. she denies CP/SOB. has been on HD since 2017 @ [facility] with Dr Ceja asking for benadryl 50 mg IV for itching, says gets it all the time during dialysis ROS: had vomitting and cramps after HD on sat Cardiovascular: No chest pain. Pulmonary: No shortness of breath Gastrointestinal: no Abdomen pain and nausea asking for Benadryl IV with HD. Genitourinary: No pain while urinating. Denies blood in urine. All other negative Physical Examination: General Appearance: comfortable, in no acute respiratory distress, co-operative . Vitals reviewed and noted as below Head; Atraumatic, normocephalic ENT: no ulcers no thrush. Tongue is midline. Oropharynx: no rash or ulcers. EYES: Pupils are equal, round and reactive to light accommodation. Eye muscles and extraocular movement intact. Sclera is anicteric. Neck; supple no lymphadenopathy, no thyromegaly or bruit Lungs: Normal respiratory rate/effort. Breath sounds bilateral equal and clear Heart: Normal rate. s1s2 normal. No rub or gallop. Extremities: no edema. No varicose veins Neurological: Patient is alert, awake and oriented to person, place and time. No focal deficit. Strength bilateral appropriate and equal Skin: Warm and dry. Normal turgor. No rash. Palpitation: Normal elasticity for age Abdomen: Abdomen is soft. Bowel sounds +. There is no abdominal tenderness, no guarding/rigidity or organomegaly Psych: normal insight and normal affect/mood MSK: no joint tenderness or swelling. Digits and nails normal, no deformity : kidney or bladder not palpable Access: AVF Labs/imaging reviewed. Past medical history, past surgical history, family history, social history, allergy reviewed and noted as below Family Hx: no hx of CKD. Non contributory Objective - Vital Signs/Intake and Output Vital Signs (last 24 hours): Temp Pulse Resp BP Pulse Ox 98.9 F 69 20 135/93 H 98 12/24/17 09:09 12/24/17 09:09 12/24/17 09:09 12/24/17 09:09 12/24/17 09:09 - Medications Medications: Current Medications Clonidine HCl (Catapres) 0.1 mg PO Q4H PRN PRN Reason: Symptoms of alcohol withdrawl Last Admin: 12/23/17 10:26 Dose: 0.1 mg Clonidine HCl (Catapres) 0.2 mg PO Q8 IRAM Last Admin: 12/24/17 06:31 Dose: Not Given Dicyclomine HCl (Bentyl) 10 mg PO Q6H PRN PRN Reason: GI distress Last Admin: 12/22/17 21:06 Dose: 10 mg Diphenhydramine HCl (Benadryl) 50 mg IVP TTS PRN PRN Reason: Itching / Pruritus Last Admin: 12/23/17 09:22 Dose: 50 mg Diphenhydramine HCl (Benadryl) 25 mg PO Q4H PRN PRN Reason: Allergy symptoms Last Admin: 12/23/17 23:45 Dose: 25 mg Folic Acid (Folic Acid) 1 mg PO DAILY [facility] Last Admin: 12/24/17 09:30 Dose: 1 mg Heparin Sodium (Porcine) (Heparin) 2,000 units IVP TTS IRAM Last Admin: 12/23/17 09:32 Dose: 2,000 units Lorazepam (Ativan) 1 mg PO Q12H IR[facility]; Taper Stop: 12/25/17 21:59 Last Admin: 12/24/17 09:31 Dose: 1 mg Lorazepam (Ativan) 1 mg PO Q4H PRN PRN Reason: Symptoms of alcohol withdrawl Last Admin: 12/23/17 23:45 Dose: 1 mg Methadone HCl (Methadone) 5 mg PO Q24H IRAM; Taper Stop: 12/26/17 09:59 Last Admin: 12/24/17 09:30 Dose: 5 mg Mirtazapine (Remeron) 15 mg PO HS [facility] Last Admin: 12/23/17 21:03 Dose: 15 mg Multivitamins (Hexavitamin) 1 tab PO DAILY [facility] Last Admin: 12/24/17 09:30 Dose: 1 tab Ondansetron HCl (Zofran Tab) 4 mg PO Q6 PRN PRN Reason: Nausea/Vomiting Sevelamer Carbonate (Renvela) 800 mg PO TIDCC [facility] Last Admin: 12/24/17 12:16 Dose: 800 mg Thiamine HCl (Vitamin B1 Tab) 100 mg PO DAILY [facility] Last Admin: 12/24/17 09:30 Dose: 100 mg Trazodone HCl (Desyrel) 50 mg PO HS PRN PRN Reason: Insomnia Last Admin: 12/23/17 23:45 Dose: 50 mg - Labs Labs: 12/20/17 15:04 12/20/17 15:04
--- NOTE | 2017-12-24 19:39 | PCM.PYCHPN ---
Psychiatric Progress Note - Psychiatric Progress Note Patient seen today, length of contact: 16 min Patient Chief Complaint: I AM TIRED AFTER DIALYSIS Problems Identified/Issues Discussed: PT STATTED SEE WAS IN PAIN PT WAS SEEN AND EXAMINHAD SEVERAL WITHDRED DISCUSSED WITH STAFF PT HAD SWVEERAL WITHDRAWAL SYMPTOMWS THAT INCLUDED NAUSEA, HOY AND CHILLS Medical Problems: NOTHING ACUTE Diagnostic Results: REVIEWED DSM 5 Symptoms Update: ANHEDONIA ANERGY Medication Change: Yes (detox changes daily) Medical Record Reviewed: Yes Mental Status Examination - Cognitive Function Orientation: Place, Situation, Time Memory: Intact Attention: Poor Concentration: Poor Association: WNL Fund of Knowledge: WNL - Mood Mood: Depressed, Anxious - Affect Affect: Blunted - Speech Speech: Appropriate - Formal Thought Process Formal Thought Process: No Impairment - Suicidal Ideation Suicidal Ideation: No - Homicidal Ideation Homicidal Ideation: No Goal/Treatment Plan - Goal/Treatment Plan Need for Continued Stay: Remain at risks for inpatient hospitalization, Severe depression anxiety, Discharge may exacerbated symptoms, Severe functional impairment Progress Toward Problem(s) and Goals/Treatment Plan: OPIOID WITHDEAQL METHADONE OPIOID USE DISORDER CBT NM GROUP MILIEU RECREATIONAL THERAPY SEDATIVE HYPNOIC USE DISORDDF LIBRIUM CBYMI GROUP THERAPIES Estimated Date of D/C: 12/27/17 - Smoking Cessation Smoking Cessation Initiated: No
--- NOTE | 2017-12-24 19:51 | PCM.PYCHPN ---
Psychiatric Progress Note - Psychiatric Progress Note Patient seen today, length of contact: 16 min Patient Chief Complaint: I FEEL BETTER TODAY BUT I STILLHAVE CRAVINGS. PT SEEN AND EXAMINED DISCUSSED WITH STAFF Problems Identified/Issues Discussed: I FEEL BETTER TODAY BUT I STILL HAVE CRAVINGS PT WAS SEEN AND EXAMINED DISCUSSED WITH STAFF Medical Problems: NOTHING ACUTE Diagnostic Results: REVIEWED Medication Change: Yes (detox changes daily) Medical Record Reviewed: Yes Mental Status Examination - Cognitive Function Orientation: Place, Situation, Time Memory: Intact Attention: WNL Concentration: Poor Association: WNL Fund of Knowledge: WNL - Mood Mood: Depressed, Anxious - Affect Affect: Blunted - Speech Speech: Appropriate - Formal Thought Process Formal Thought Process: No Impairment - Suicidal Ideation Suicidal Ideation: No - Homicidal Ideation Homicidal Ideation: No Goal/Treatment Plan - Goal/Treatment Plan Need for Continued Stay: Severe depression anxiety, Discharge may exacerbated symptoms, Severe functional impairment Progress Toward Problem(s) and Goals/Treatment Plan: OPIOID WITHDEAQL METHADONE OPIOID USE DISORDER CBT NM GROUP MILIEU RECREATIONAL THERAPY SEDATIVE HYPNOIC USE DISORDDF LIBRIUM CBYMI GROUP THERAPIES Estimated Date of D/C: 12/27/17 - Smoking Cessation Smoking Cessation Initiated: No
--- NOTE | 2017-12-24 20:02 | PCM.PYCHPN ---
Psychiatric Progress Note - Psychiatric Progress Note Patient seen today, length of contact: 16 min Patient Chief Complaint: I FEEL BETTER TODAY BUT I AM NOT READY TO LEVE I STILL HAVE CRAVINGS PT SEEN AND EXAMINED CHART REVIEWED DISCUSSED WITH STAFF Problems Identified/Issues Discussed: PT STATTED SEE WAS IN PAIN PT WAS SEEN AND EXAMINHAD SEVERAL WITHDRED DISCUSSED WITH STAFF PT HAD SWVEERAL WITHDRAWAL SYMPTOMWS THAT INCLUDED NAUSEA, HOY AND CHILLS Medical Problems: NOTHING ACUTE Diagnostic Results: REVIEWED Medication Change: Yes (detox changes daily) Medical Record Reviewed: Yes Mental Status Examination - Cognitive Function Orientation: Place, Situation, Time Memory: Intact Attention: Poor Concentration: Poor Association: WNL Fund of Knowledge: WNL - Mood Mood: Depressed, Anxious - Affect Affect: Blunted - Speech Speech: Appropriate - Formal Thought Process Formal Thought Process: No Impairment - Suicidal Ideation Suicidal Ideation: No - Homicidal Ideation Homicidal Ideation: No Goal/Treatment Plan - Goal/Treatment Plan Need for Continued Stay: Remain at risks for inpatient hospitalization, Severe depression anxiety, Discharge may exacerbated symptoms, Severe functional impairment Progress Toward Problem(s) and Goals/Treatment Plan: OPIOID WITHDEAQL METHADONE OPIOID USE DISORDER CBT PA GROUP MILIEU RECREATIONAL THERAPY SEDATIVE HYPNOIC USE DISORDDF LIBRIUM CBYMI GROUP THERAPIES Estimated Date of D/C: 12/27/17
[2017-12-25] MEDS: Multiple Vitamins Tab PO SCH (10:06)
[2017-12-25] MEDS ORDERED: DiphenhydrAMINE 50 mg/ml Inj IVP PRN (11:30)
--- NOTE | 2017-12-25 13:07 | CP.PCM.PN ---
Subjective - Date & Time of Evaluation Date of Evaluation: 12/25/17 Time of Evaluation: 13:06 - Subjective Subjective: Nephrology Consultation Note: Assessment: Stable heroin drug abuse Hypertensive Chronic Kidney Disease (I12.0) End stage renal disease (N18.6) dependence on hemodialysis (Z99.2) (MWF) via AVF Anemia (D64.9), Hyperphosphatemia (E83.39), Secondary Hyperparathyroidism (E21.1), HTN (I12.0) Plan: Will plan for dialysis MWF as ordered. Continue with Nephrovite 1 tab/day. PRBC as needed for anemia. Not on KAITLYNN with HD as last Hb 11.4 Continue with phos binders as ordered BP control with meds as ordered. clonidine as needed. Glycemic control, Dialysis consistent diet Further work up/management as per primary team Dose meds/antibiotics (if needed) for ESRD status. Avoid fleets enema/magnesium based laxatives. pt need to abstain from drugs. need lifestyle modifications Thanks for allowing me to participate in care of your patient. Will follow patient with you. Please call if any Qs Dr Ilan Raymundo Office: [phone] Chief Complaint; drug addiction reason for consult: ESRD HPI: Pt is a 57 F with hx of ESRD on hemodialysis (MWF) via AVF, chronic anemia, hyperphosphatemia, secondary hyperparathyroidism, hypertension, drug abuse (heroin) presented with complaints of drug abuse and detox. she denies CP/SOB. has been on HD since 2017 @ [facility] with Dr Ceja asking for benadryl 50 mg IV for itching, says gets it all the time during dialysis ROS: had vomitting and cramps after HD on sat Cardiovascular: No chest pain. Pulmonary: No shortness of breath Gastrointestinal: c/o Abdomen pain and nausea asking for Benadryl IV with HD. Genitourinary: No pain while urinating. Denies blood in urine. All other negative Physical Examination: seen during HD General Appearance: comfortable, in no acute respiratory distress, co-operative . Vitals reviewed and noted as below Head; Atraumatic, normocephalic ENT: no ulcers no thrush. Tongue is midline. Oropharynx: no rash or ulcers. EYES: Pupils are equal, round and reactive to light accommodation. Eye muscles and extraocular movement intact. Sclera is anicteric. Neck; supple no lymphadenopathy, no thyromegaly or bruit Lungs: Normal respiratory rate/effort. Breath sounds bilateral equal and clear Heart: Normal rate. s1s2 normal. No rub or gallop. Extremities: no edema. No varicose veins Neurological: Patient is alert, awake and oriented to person, place and time. No focal deficit. Strength bilateral appropriate and equal Skin: Warm and dry. Normal turgor. No rash. Palpitation: Normal elasticity for age Abdomen: Abdomen is soft. Bowel sounds +. There is no abdominal tenderness, no guarding/rigidity or organomegaly Psych: normal insight and normal affect/mood MSK: no joint tenderness or swelling. Digits and nails normal, no deformity : kidney or bladder not palpable Access: AVF Labs/imaging reviewed. Past medical history, past surgical history, family history, social history, allergy reviewed and noted as below Family Hx: no hx of CKD. Non contributory Objective - Vital Signs/Intake and Output Vital Signs (last 24 hours): Temp Pulse Resp BP Pulse Ox 97.9 F 75 20 129/98 H 99 12/25/17 09:15 12/25/17 09:15 12/25/17 09:15 12/25/17 11:45 12/25/17 09:15 - Medications Medications: Current Medications Clonidine HCl (Catapres) 0.1 mg PO Q4H PRN PRN Reason: Symptoms of alcohol withdrawl Last Admin: 12/23/17 10:26 Dose: 0.1 mg Clonidine HCl (Catapres) 0.2 mg PO Q8 IRAM Last Admin: 12/25/17 05:37 Dose: Not Given Dicyclomine HCl (Bentyl) 10 mg PO Q6H PRN PRN Reason: GI distress Last Admin: 12/22/17 21:06 Dose: 10 mg Diphenhydramine HCl (Benadryl) 50 mg IVP MWF PRN PRN Reason: Itching / Pruritus Last Admin: 12/25/17 10:04 Dose: 50 mg Diphenhydramine HCl (Benadryl) 25 mg PO Q4H PRN PRN Reason: Allergy symptoms Folic Acid (Folic Acid) 1 mg PO DAILY [facility] Last Admin: 12/25/17 10:06 Dose: Not Given Heparin Sodium (Porcine) (Heparin) 2,000 units IVP MWF [facility] Last Admin: 12/25/17 09:52 Dose: 2,000 units Lorazepam (Ativan) 1 mg PO Q24H [facility]; Taper Stop: 12/25/17 21:59 Last Admin: 12/24/17 21:54 Dose: 1 mg Lorazepam (Ativan) 1 mg PO Q4H PRN PRN Reason: Symptoms of alcohol withdrawl Last Admin: 12/23/17 23:45 Dose: 1 mg Methadone HCl (Methadone) 5 mg PO Q24H [facility]; Taper Stop: 12/26/17 09:59 Last Admin: 12/25/17 10:06 Dose: Not Given Mirtazapine (Remeron) 15 mg PO HS [facility] Last Admin: 12/24/17 21:54 Dose: 15 mg Multivitamins (Hexavitamin) 1 tab PO DAILY [facility] Last Admin: 12/25/17 10:06 Dose: Not Given Ondansetron HCl (Zofran Tab) 4 mg PO Q6 PRN PRN Reason: Nausea/Vomiting Sevelamer Carbonate (Renvela) 800 mg PO TIDCC [facility] Last Admin: 12/25/17 10:06 Dose: Not Given Thiamine HCl (Vitamin B1 Tab) 100 mg PO DAILY [facility] Last Admin: 12/25/17 10:06 Dose: Not Given Trazodone HCl (Desyrel) 50 mg PO HS PRN PRN Reason: Insomnia Last Admin: 12/23/17 23:45 Dose: 50 mg - Labs Labs: 12/20/17 15:04 12/20/17 15:04
--- NOTE | 2017-12-25 14:04 | PCM.PYCHPN ---
Psychiatric Progress Note - Psychiatric Progress Note Patient seen today, length of contact: 16 min Patient Chief Complaint: "I'm sick" Problems Identified/Issues Discussed: The pt is seen, chart reviewed, case discussed with staff. Support and psychoeducation given, CBT and AK used briefly No new symptoms reported, improving slowly and needs more time No SEs from medications, risks discussed. After care discussed Medication Change: Yes (detox changes daily) Medical Record Reviewed: Yes Mental Status Examination - Cognitive Function Orientation: Place, Situation, Time Memory: Intact Attention: Poor Concentration: Poor Association: WNL Fund of Knowledge: WNL - Mood Mood: Depressed, Anxious - Affect Affect: Blunted - Speech Speech: Appropriate - Formal Thought Process Formal Thought Process: No Impairment - Suicidal Ideation Suicidal Ideation: No - Homicidal Ideation Homicidal Ideation: No Goal/Treatment Plan - Goal/Treatment Plan Need for Continued Stay: Remain at risks for inpatient hospitalization, Severe depression anxiety, Discharge may exacerbated symptoms, Severe functional impairment Progress Toward Problem(s) and Goals/Treatment Plan: Methadone detox Ativan detox Remeron for depression As needed medications All risks, benefits and alternatives of the meds discussed, and the pt agreed and understood. Attend groups and activities Supportive therapy and psychoeducation AK for abstinence CBT for relapse prevention Encourage MAT Refer to rehab or IOP, and self-help groups Attend groups and activities Individual therapy daily Psychoeducation and support daily Encourage compliance with meds and after care Refer to outpatient program Teach healthy lifestyle methods, i.e. diet, exercise, meditation Estimated Date of D/C: 12/26/17
--- NOTE | 2017-12-26 08:53 | PCM.PYCHDC ---
Mental Status Examination - Mental Status Examination Orientation: Person Discharge Summary - Discharge Note Consultations:: List each consultation separately and include: 1. Reason for request. 2. Findings. 3. Follow-up Summary of Hospital Course include:: 1. Description of specific treatment plan utilized for patients during their course of treatmen. 2. Summarize the time- course for resolution of acute symptoms and/or regressed behaviors. 3. Describe issues identified and worked on during hospitalization. 4. Describe medication utilized. 5. Describe medical problems identified and treated. 6. Reassessment of suicide risk Summary of Hospital Course: She is seen, chart reviewed and case discussed. She is known from a previous admission. This is a 57 yo AAF, single, with 5 children (34 yo, 25 yo, 23 yo, 20 yo,14 yo), lives together with her brother and his two children, and her younger son and daughter, unemployed on disability, with PMHx significant for ESRD who presented to the ED requesting detox for heroin again. Patient states that she was sober for 18 years until relapse again, detox but relapsed quickly. She estimates snorting 10-15 bags/day of heroin and 4-5 tablets of 1 mg xanax/day. She denies any cocaine, painkiller, ETOH or tobacco use. No other complaints are noted at this time but low mood and anxiety. No MAT and she is not interested Not suicidal or homicidal, no AVH or delusions. Detox Hx: x5 in the past Rehab Hx: x2 addicts rehab center in [facility] Medical Hx: Hep C, ESRD on HD (MWF) (dx in 2017), HTN Psych Hx: depression Fam Hx: sister also uses heroin She will go to [facility] IOP - Diagnosis (1) Sedative, hypnotic or anxiolytic use disorder, severe, dependence Current Visit: Yes Status: Acute (2) Opioid use disorder, severe, dependence Current Visit: Yes Status: Acute - Final Diagnosis (DSM 5) Condition upon Discharge: STABLE Disposition: HOME/ ROUTINE Follow-up Treatment Plan: Methadone detox Ativan detox Remeron for depression As needed medications All risks, benefits and alternatives of the meds discussed, and the pt agreed and understood. Attend groups and activities Supportive therapy and psychoeducation MO for abstinence CBT for relapse prevention Encourage MAT Refer to rehab or IOP, and self-help groups Attend groups and activities Individual therapy daily Psychoeducation and support daily Encourage compliance with meds and after care Refer to outpatient program Teach healthy lifestyle methods, i.e. diet, exercise, meditation Prescriptions/Medication Reconciliation: Mirtazapine [Remeron] 15 mg PO HS #30 tab Multivitamins [Hexavitamin] 1 tab PO DAILY #30 tab traZODone [Desyrel] 50 mg PO HS PRN #30 tab PRN Reason: Insomnia
[2017-12-26] MEDS: Multiple Vitamins Tab PO SCH (10:28)
--- NOTE | 2017-12-26 10:53 | CP.PCM.PN ---
Subjective - Date & Time of Evaluation Date of Evaluation: 12/26/17 Time of Evaluation: 10:52 - Subjective Subjective: Nephrology Consultation Note: Assessment: Stable heroin drug abuse Hypertensive Chronic Kidney Disease (I12.0) End stage renal disease (N18.6) dependence on hemodialysis (Z99.2) (MWF) via AVF Anemia (D64.9), Hyperphosphatemia (E83.39), Secondary Hyperparathyroidism (E21.1), HTN (I12.0) Plan: Will plan for dialysis MWF as ordered. Continue with Nephrovite 1 tab/day. PRBC as needed for anemia. Not on KAITLYNN with HD as last Hb 11.4 Continue with phos binders as ordered BP control with meds as ordered. clonidine as needed. Glycemic control, Dialysis consistent diet Further work up/management as per primary team Dose meds/antibiotics (if needed) for ESRD status. Avoid fleets enema/magnesium based laxatives. pt need to abstain from drugs. need lifestyle modifications pt stable for d/c from renal perspective when planned. Thanks for allowing me to participate in care of your patient. Will follow patient with you. Please call if any Qs Dr Ilan Raymundo Office: [phone] Chief Complaint; drug addiction reason for consult: ESRD HPI: Pt is a 57 F with hx of ESRD on hemodialysis (MWF) via AVF, chronic anemia, hyperphosphatemia, secondary hyperparathyroidism, hypertension, drug abuse ( heroin) presented with complaints of drug abuse and detox. she denies CP/SOB. has been on HD since 2017 @ [facility] with Dr Ceja asking for benadryl 50 mg IV for itching, says gets it all the time during dialysis ROS: Cardiovascular: No chest pain. Pulmonary: No shortness of breath Gastrointestinal: c/o stomach updet Genitourinary: No pain while urinating. Denies blood in urine. All other negative Physical Examination: General Appearance: comfortable, in no acute respiratory distress, co-operative . Vitals reviewed and noted as below Head; Atraumatic, normocephalic ENT: no ulcers no thrush. Tongue is midline. Oropharynx: no rash or ulcers. EYES: Pupils are equal, round and reactive to light accommodation. Eye muscles and extraocular movement intact. Sclera is anicteric. Neck; supple no lymphadenopathy, no thyromegaly or bruit Lungs: Normal respiratory rate/effort. Breath sounds bilateral equal and clear Heart: Normal rate. s1s2 normal. No rub or gallop. Extremities: no edema. No varicose veins Neurological: Patient is alert, awake and oriented to person, place and time. No focal deficit. Strength bilateral appropriate and equal Skin: Warm and dry. Normal turgor. No rash. Palpitation: Normal elasticity for age Abdomen: Abdomen is soft. Bowel sounds +. There is no abdominal tenderness, no guarding/rigidity or organomegaly Psych: normal insight and normal affect/mood MSK: no joint tenderness or swelling. Digits and nails normal, no deformity : kidney or bladder not palpable Access: AVF Labs/imaging reviewed. Past medical history, past surgical history, family history, social history, allergy reviewed and noted as below Family Hx: no hx of CKD. Non contributory Objective - Vital Signs/Intake and Output Vital Signs (last 24 hours): Temp Pulse Resp BP Pulse Ox 98.8 F 81 18 113/50 L 96 12/26/17 06:00 12/26/17 06:00 12/26/17 06:00 12/26/17 06:00 12/26/17 06:00 - Medications Medications: Current Medications Clonidine HCl (Catapres) 0.1 mg PO Q4H PRN PRN Reason: Symptoms of alcohol withdrawl Last Admin: 12/23/17 10:26 Dose: 0.1 mg Clonidine HCl (Catapres) 0.2 mg PO Q8 [facility] Last Admin: 12/26/17 06:13 Dose: Not Given Dicyclomine HCl (Bentyl) 10 mg PO Q6H PRN PRN Reason: GI distress Last Admin: 12/25/17 23:26 Dose: 10 mg Diphenhydramine HCl (Benadryl) 50 mg IVP MWF PRN PRN Reason: Itching / Pruritus Last Admin: 12/25/17 10:04 Dose: 50 mg Diphenhydramine HCl (Benadryl) 25 mg PO Q4H PRN PRN Reason: Allergy symptoms Folic Acid (Folic Acid) 1 mg PO DAILY [facility] Last Admin: 12/26/17 10:28 Dose: 1 mg Heparin Sodium (Porcine) (Heparin) 2,000 units IVP MWF [facility] Last Admin: 12/25/17 09:52 Dose: 2,000 units Lorazepam (Ativan) 1 mg PO Q4H PRN PRN Reason: Symptoms of alcohol withdrawl Last Admin: 12/25/17 23:26 Dose: 1 mg Mirtazapine (Remeron) 15 mg PO HS [facility] Last Admin: 12/25/17 21:21 Dose: 15 mg Multivitamins (Hexavitamin) 1 tab PO DAILY [facility] Last Admin: 12/26/17 10:28 Dose: 1 tab Ondansetron HCl (Zofran Tab) 4 mg PO Q6 PRN PRN Reason: Nausea/Vomiting Sevelamer Carbonate (Renvela) 800 mg PO TIDCC [facility] Last Admin: 12/26/17 09:43 Dose: Not Given Thiamine HCl (Vitamin B1 Tab) 100 mg PO DAILY [facility] Last Admin: 12/26/17 10:28 Dose: 100 mg Trazodone HCl (Desyrel) 50 mg PO HS PRN PRN Reason: Insomnia Last Admin: 12/25/17 21:18 Dose: 50 mg - Labs Labs: 12/20/17 15:04 12/20/17 15:04
[2017-12-26 11:33] VITALS: BP 100/67; PULSE 62; RESP 20; TEMP 98.6; O2SAT 97
== END 2017-12-26 12:56 | disposition home or self-care (01) | DRG 896 ==
LOC: C.ER 13:47 → C.7D 18:48
PROVIDERS: ADMIT Psychiatry & Neurology Psychiatry; ATTEND Psychiatry & Neurology Psychiatry
PROC: 5A1D70Z Performance of Urinary Filtration, Intermittent, Less than 6 Hours Per Day (ICD-10-PCS; principal; 2017-12-21)
PROC: 5A1D70Z Performance of Urinary Filtration, Intermittent, Less than 6 Hours Per Day (ICD-10-PCS; 2017-12-23)
PROC: 5A1D70Z Performance of Urinary Filtration, Intermittent, Less than 6 Hours Per Day (ICD-10-PCS; 2017-12-25)
PROC: GZHZZZZ Group Psychotherapy (ICD-10-PCS; 2017-12-25)
PROC: GZ56ZZZ Individual Psychotherapy, Supportive (ICD-10-PCS; 2017-12-25)
DX: F11.23 Opioid dependence with withdrawal (principal); N18.6 End stage renal disease; I12.0 Hypertensive chronic kidney disease with stage 5 chronic kidney disease or end stage renal disease; N25.81 Secondary hyperparathyroidism of renal origin; F32.1 Major depressive disorder, single episode, moderate; D64.9 Anemia, unspecified; Z99.2 Dependence on renal dialysis; F41.9 Anxiety disorder, unspecified; F13.10 Sedative, hypnotic or anxiolytic abuse, uncomplicated

== ENCOUNTER 2018-02-28 18:46 | Inpatient (IN) | payer MEDICARE ==
[2018-02-28 18:47] VITALS: BMI 33.3
--- NOTE | 2018-02-28 19:45 | C.PDOC ---
History Of Present Illness 57 y/o female comes in requesting heroin and xanax detox. Patient was detoxed here before and is due for dialysis tonight. States she normally gets dialysis in [place]. Patient reports last use of heroin and xanax was this morning. Has no physical complaints at this time. Time Seen by Provider: 02/28/18 19:38 History Per: Patient History/Exam Limitations: no limitations Onset/Duration Of Symptoms: Days Current Symptoms Are (Timing): Still Present Past Medical History Reviewed: Historical Data, Nursing Documentation, Vital Signs - Medical History PMH: Hepatitis (C), HTN, End Stage Renal Disease, Chronic Kidney Disease Denies: Diabetes, HIV, Seizures, Sexually Transmitted Disease Surgical History: Cholecystectomy - [facility] (12/20/17) DETOXIFICATION SERVICES FOR SUBSTANCE ABUSE TREATMENT (04/10/17) GROUP PSYCHOTHERAPY (12/20/17) INDIV PSYCHOTHERAPY FOR SUBSTANCE ABUSE TREATMENT, SUPPORT (04/10/17) INDIV PSYCHOTHERAPY FOR SUBSTANCE ABUSE, COGNITIV BEHAVIORAL (04/10/17) INDIV PSYCHOTHERAPY FOR SUBSTANCE ABUSE, MOTIVATION ENHANCE (04/10/17) INDIVIDUAL PSYCHOTHERAPY, SUPPORTIVE (12/20/17) Family History: States: No Known Family Hx - Social History Hx Alcohol Use: No Hx Substance Use: Yes - Immunization History Hx Tetanus Toxoid Vaccination: No Hx Influenza Vaccination: No Hx Pneumococcal Vaccination: No Review Of Systems Constitutional: Negative for: Fever, Chills Cardiovascular: Negative for: Chest Pain Respiratory: Negative for: Shortness of Breath Gastrointestinal: Negative for: Vomiting, Abdominal Pain Skin: Negative for: Rash Psych: Positive for: Other (Heroin and Xanax use). Negative for: Suicidal ideation Physical Exam - Physical Exam Appears: Non-toxic, No Acute Distress Skin: Warm, Dry Head: Atraumatic, Normacephalic Eye(s): bilateral: Normal Inspection Oral Mucosa: Moist Neck: Supple Cardiovascular: Rhythm Regular, No Murmur Respiratory: Normal Breath Sounds, No Rales, No Rhonchi, No Wheezing Extremity: Bilateral: Atraumatic, Normal Color And Temperature, Normal ROM Neurological/Psych: Oriented x3, Normal Speech Gait: Steady ED Course And Treatment - Laboratory Results Result Diagrams: 02/28/18 20:46 02/28/18 20:46 Lab Interpretation: Abnormal (BUN 41, Cr 12.2, K+ 4.3) Progress Note: Patient ws prescreened by Dr Lozano. Nephrology consultation for dialysis in the morning requested. Patient is medically cleeared for a detox admission. Disposition - Disposition Disposition: HOSPITALIZED Disposition Time: 21:54 Condition: STABLE - POA Present On Arrival: None - Clinical Impression Clinical Impression: Opioid use disorder, severe, dependence, ESRD (end stage renal disease) on dialysis - Scribe Statement The provider has reviewed the documentation as recorded by the Shilpa Munson Provider Attestation: All medical record entries made by the Shilpa were at my direction and personally dictated by me. I have reviewed the chart and agree that the record accurately reflects my personal performance of the history, physical exam, medical decision making, and the department course for this patient. I have also personally directed, reviewed, and agree with the discharge instructions and disposition.
[2018-02-28 20:50] LABS: BASO # 0.1 K/uL (0.0-0.2); BASO % 0.9 % (0.0-2.0); EOS # 0.2 K/uL (0.0-0.7); EOS % 3.2 % (0.0-4.0); HEMOGLOBIN 11.7 g/dL (11.0-16.0); LYMPH # 1.9 K/uL (1.0-4.3); MEAN CELL VOLUME 85.2 fL (81.0-99.0); MEAN CORPUSCULAR HEMOGLOBIN 27.7 pg (27.0-31.0); MEAN CORPUSCULAR HGB CONC 32.5 g/dL (33.0-37.0); MEAN PLATELET VOLUME 8.4 fL (7.2-11.7); MONO # 0.3 K/uL (0.0-0.8); MONO % 5.8 % (0.0-10.0); NEUT # 3.4 K/uL (1.8-7.0); NEUT % 57.1 % (50.0-75.0); NRBC % 0.1 % (0.0-2.0); RBC 4.23 Mil/uL (3.80-5.20); RED CELL DISTRIBUTION WIDTH 13.8 % (11.5-14.5); WHITE BLOOD COUNT 5.9 K/uL (4.8-10.8)
[2018-02-28 21:07] LABS: ALB/GLOB RATIO 1.2 (1.0-2.1); ALBUMIN 4.7 g/dL (3.5-5.0); ALT/SGPT 34 U/L (9-52); AST/SGOT 55 U/L (14-36); BLOOD UREA NITROGEN 41 mg/dL (7-17); GFR NON-AFRICAN AMERICAN 3
--- NOTE | 2018-03-01 02:03 | PCM.BM ---
<Galo Mclaughlin - Last Filed: 03/01/18 02:01> Treatment Plan Problems - Problems identified on initial assessmt Denial Date Initiated: 03/01/18 Time Initiated: 02:01 Assessment reference: NA Status: Active Defensive coping Date Initiated: 03/01/18 Time Initiated: 02:02 Assessment reference: NA Status: Active Low motivation to change Date Initiated: 03/01/18 Time Initiated: 02:02 Assessment reference: NA Status: Active Treatment assets and liabiliti Patient Assests: adapts well, cooperative, educated, ADL independent, negotiates basic needs, cognitively intact Patient Liabilities: substance abuse - Milieu Protocol Maintain good personal hygiene: daily Encourage regular showers, daily Remind patient to perform daily oral care, daily Assist patient to perform ADL's Maintain personal safety: every shift Educate patient to report safety concerns to staff, every shift Monitor environment for contraband/sharps Medication safety: Monitor for expected outcome, potential side effects: every shift, Assess barriers to learning: every shift, Assess readiness for medication education: every shift <Kati Lozano - Last Filed: 03/02/18 00:27> - Diagnosis (1) Opioid use disorder, severe, dependence Status: Acute Interventions: 03/02/18 00:26 * Assess 7x/week regarding severity of withdrawal * Educate regarding risks, benefits, side effects and alternatives of medications * Use Motivational Interviewing for abstinence * Use CBT for relapse prevention * Medication management for withdrawal symptoms * Encourage medication assisted treatment * (2) Sedative, hypnotic or anxiolytic use disorder, severe, dependence Status: Acute Interventions: 03/02/18 00:26 * Assess 7x/week regarding severity of withdrawal * Educate regarding risks, benefits, side effects and alternatives of medications * Use Motivational Interviewing for abstinence * Use CBT for relapse prevention * Medication management for withdrawal symptoms * Encourage medication assisted treatment *
--- NOTE | 2018-03-01 08:42 | PCM.PSYCH ---
Initial Psychiatric Evaluation - Initial Psychiatric Evaluation Type of Admission: Voluntary Legal Status: Capacity Chief Complaint (in patient's own words): "I'm sick" History of Present Illness and Precipitating Events: She is seen, chart reviewed and case discussed. She is known from a previous admission. This is a 57 yo AAF, single, with 5 children (34 yo, 25 yo, 23 yo, 20 yo,14 yo), lives together with her brother and his two children, and her younger son and daughter, unemployed on disability, with PMHx significant for ESRD who presented to the ED requesting detox for heroin again. Patient states that she was sober for 18 years until relapse again, detoxed here but relapsed quickly. She estimates snorting 20 bags/day of heroin and 4-5 tablets of 1 mg xanax/day, again. She denies any cocaine, painkiller, ETOH or tobacco use. No other complaints are noted at this time but low mood and anxiety. No MAT and she is not interested Not suicidal or homicidal, no AVH or delusions. Detox Hx: x5 in the past Rehab Hx: x2 addicts rehab center in [facility] Medical Hx: Hep C, ESRD on HD (MWF) (dx in 2017), HTN Psych Hx: depression Fam Hx: sister also uses heroin Current Medications: Active Medications Generic Name Dose Route Start Last Admin Trade Name Freq PRN Reason Stop Dose Admin Clonidine HCl 0.1 mg 03/01/18 01:26 Catapres PO Q6 PRN withdrawal symptoms COW =5 Dicyclomine HCl 10 mg 03/01/18 01:28 Bentyl PO Q6 PRN Muscle spasm Hydroxyzine HCl 25 mg 03/01/18 01:31 Atarax PO Q6 PRN Anxiety Trazodone HCl 50 mg 03/01/18 01:30 Desyrel PO HS PRN Insomnia Past Psychiatric History - Past Psychiatric History Previous Treatment History: Intensive Outpatient Pertinent Medical Hx (Current Medical&Sleep Prob, Allergies): Allergies Allergy/AdvReac Type Severity Reaction Status Date / Time No Known Allergies Allergy Verified 12/20/17 13:53 Diclofenac Sodium [Voltaren] 100 gm TP DAILY 04/10/17 Vit B Comp No.3/Folic/C/Biotin [Lauren-Viktor Rx Tablet] 1 tab PO DAILY 04/10/17 cloNIDine [Catapres] 0.2 mg PO TID 04/10/17 Calcium Acetate [Phoslo] 667 mg PO BIDCC tab 04/14/17 Epoetin Vickey [Procrit] 4,000 unit IV MWF ml 04/14/17 Escitalopram [Lexapro] 5 mg PO DAILY #30 tab 04/14/17 Multivitamins [Hexavitamin] 1 tab PO DAILY #30 tab 04/14/17 traZODone [Desyrel] 50 mg PO HS PRN #30 tab 04/14/17 Mirtazapine [Remeron] 15 mg PO HS #30 tab 12/26/17 Multivitamins [Hexavitamin] 1 tab PO DAILY #30 tab 12/26/17 Sevelamer Carbonate [Renvela] 800 mg PO TIDCC tab 12/26/17 traZODone [Desyrel] 50 mg PO HS PRN #30 tab 12/26/17 Review of Systems - Psychiatric Psychiatric: Abnormal Sleep Pattern, Anhedonia, Anxiety, Change in Appetite, Depression, Difficulty Concentrating. absent: Hallucinations, Homicidal Ideation, Paranoia, Suicidal Ideation Mental Status Examination - Personal Presentation Personal Presentation: Looks older than stated age - Affect Affect: Blunted - Motor Activity Motor Activity: Other (restless, mild) - Reliability in Providing Information Reliability in Providing Information: Fair - Speech Speech: Organized - Mood Mood: Depressed, Anxious - Formal Thought Process Formal Thought Process: No Impairment (slowed) - Cognitive Functions Orientation: Person, Place, Situation, Time Sensorium: Drowsy Attention/Concentration: Easily distracted Abstract Thinking: [place] Estimate of Intelligence: Below average Judgement: Imparied, as evidence by: Poor judgement (using despite ESRD) Memory: Recent intact, as evidence by: Ability to recall events of the day, Remote impaired as evidenced by: Inability to recall sig life events - Risk Risk: Withdrawal, Diminished functioning - Strength & Assets Inventory Strength & Assets Inventory: Cooperative - Limitations Limitations: Other (ESRD) DSM 5 DX - DSM 5 DSM 5 Diagnosis: Opioid Withdrawal Opioid Use d/o - severe Sedative hypnotic or anxiolytic withdrawal Sedative hypnotic or anxiolytic use d/o - severe Major depression - moderate - Recommended/Plan of Treatment Treatment Recommendations and Plan of Treatment: Methadone detox for opioids Ativan detox for benzos Remeron for depression As needed medications All risks, benefits and alternatives of the meds discussed, and the pt agreed and understood. Attend groups and activities Supportive therapy and psychoeducation ME for abstinence CBT for relapse prevention Encourage MAT Refer to rehab or IOP, and self-help groups Attend groups and activities Individual therapy daily Psychoeducation and support daily Encourage compliance with meds and after care Refer to outpatient program Teach healthy lifestyle methods, i.e. diet, exercise, meditation Nephro help appreciated Will attend HD 3x/week 34 min Projected ELOS: 5 days
[2018-03-01] MEDS ORDERED: Aluminum Hydroxide/Magnesium Hydroxide Susp (30 mL) PO PRN (09:00)
--- NOTE | 2018-03-01 12:42 | CP.PCM.CON ---
History of Present Illness - History of Present Illness History of Present Illness: Jericho Tyrone PGY 2 Nephrology consult note for Dr. Duran Reason for consult: ESRD 57 year old female with a PMH of ESRD on HD (MWF, via AVF, since 2017, @ [facility], with Dr. Ceja), hypertension, anemia, and opiate dependency who presented to the detox unit for opiate dependence. The patient is somnolent at this time, so HPI and ROS were limited. She denied shortness of breath, leg swelling or any chest pain or discomfort. 12-pt ROS was attempted but limited due to patient's condition. Review of Systems - Review of Systems Systems not reviewed;Unavailable: Uncooperative Past Patient History - Past Medical History & Family History Past Medical History?: Yes Past Family History: Reviewed and not pertinent - Past Social History Smoking Status: Former Smoker - CARDIAC Hx Hypertension: Yes - PULMONARY Hx Tuberculosis: No - NEUROLOGICAL Hx Seizures: No - RENAL Hx Chronic Kidney Disease: Yes (stage V) Hx Dialysis: Yes Type of Dialysis Access: AVF Hx Renal Failure: Yes - HEMATOLOGICAL/ONCOLOGICAL Hx Human Immunodeficiency Virus (HIV): No - MUSCULOSKELETAL/RHEUMATOLOGICAL Hx Falls: No - GENITOURINARY/GYNECOLOGICAL Hx Sexually Transmitted Disorders: No - PSYCHIATRIC Hx Substance Use: Yes (xanax) - SURGICAL HISTORY Hx Cholecystectomy: Yes - ANESTHESIA Hx Anesthesia: Yes Meds Allergies/Adverse Reactions: Allergies Allergy/AdvReac Type Severity Reaction Status Date / Time No Known Allergies Allergy Verified 12/20/17 13:53 - Medications Medications: Current Medications Acetaminophen (Tylenol 325mg Tab) 650 mg PO Q6 PRN PRN Reason: Pain, moderate (4-7) Al Hydrox/Mg Hydrox/Simethicone (Maalox 30 Ml) 30 ml PO TID PRN PRN Reason: Indigestion / Heartburn Clonidine HCl (Catapres) 0.1 mg PO Q6 PRN PRN Reason: withdrawal symptoms COW =5 Dicyclomine HCl (Bentyl) 10 mg PO Q6 PRN PRN Reason: Muscle spasm Diphenhydramine HCl (Benadryl) 50 mg PO Q6H PRN PRN Reason: itching, allergies Hydroxyzine HCl (Atarax) 25 mg PO Q6 PRN PRN Reason: Anxiety Loperamide HCl (Imodium) 2 mg PO Q8 PRN PRN Reason: Diarrhea Last Admin: 03/01/18 10:28 Dose: 2 mg Ondansetron HCl (Zofran Tab) 4 mg PO Q8 PRN PRN Reason: Nausea/Vomiting Trazodone HCl (Desyrel) 50 mg PO HS PRN PRN Reason: Insomnia Physical Exam - Constitutional Appears: Non-toxic, No Acute Distress - Head Exam Head Exam: ATRAUMATIC, NORMAL INSPECTION - Eye Exam Eye Exam: EOMI, Normal appearance - ENT Exam ENT Exam: Mucous Membranes Moist - Respiratory Exam Respiratory Exam: Clear to Auscultation Bilateral, NORMAL BREATHING PATTERN. absent: Wheezes - Cardiovascular Exam Cardiovascular Exam: RRR, +S1, +S2 - GI/Abdominal Exam GI & Abdominal Exam: Normal Bowel Sounds, Soft. absent: Distended, Tenderness - Extremities Exam Extremities exam: Positive for: normal inspection. Negative for: pedal edema Additional comments: Left AVF +thrill +bruit - Back Exam Back exam: NORMAL INSPECTION - Neurological Exam Neurological exam: Altered (somnolent) - Psychiatric Exam Psychiatric exam: Normal Affect - Skin Skin Exam: Normal Color, Warm Results - Vital Signs Recent Vital Signs: Last Vital Signs Temp 98.2 F 03/01/18 09:49 Pulse 74 03/01/18 09:49 Resp 19 03/01/18 09:49 BP 114/77 03/01/18 09:49 Pulse Ox 97 03/01/18 09:49 - Labs Result Diagrams: 02/28/18 20:46 02/28/18 20:46 Labs: Laboratory Results - last 24 hr 02/28/18 02/28/18 20:46 20:46 WBC 5.9 RBC 4.23 Hgb 11.7 Hct 36.1 MCV 85.2 MCH 27.7 MCHC 32.5 L RDW 13.8 Plt Count 185 MPV 8.4 Neut % (Auto) 57.1 Lymph % (Auto) 33.0 Oliver % (Auto) 5.8 Eos % (Auto) 3.2 Baso % (Auto) 0.9 Neut # (Auto) 3.4 Lymph # (Auto) 1.9 Oliver # (Auto) 0.3 Eos # (Auto) 0.2 Baso # (Auto) 0.1 Sodium 137 Potassium 4.3 Chloride 94 L Carbon Dioxide 29 Anion Gap 18 BUN 41 H Creatinine 12.2 H* Est GFR ( Amer) 4 Est GFR (Non-Af Amer) 3 Random Glucose 126 H Calcium 10.0 Phosphorus 4.2 Magnesium 2.0 Total Bilirubin 0.6 AST 55 H ALT 34 Alkaline Phosphatase 95 Total Protein 8.4 H Albumin 4.7 Globulin 3.7 Albumin/Globulin Ratio 1.2 Alcohol, Quantitative < 10 Assessment & Plan - Assessment and Plan (Free Text) Assessment: 57 year old female with a PMH of ESRD on HD (MWF, via AVF, since 2017, @ [facility], with Dr. Ceja), hypertension, anemia, and opiate dependency who presented to the detox unit for opiate dependence. We are consulted for dialysis and management of the patient's ESRD. ESRD - HD today w/ goal UF 2.5L w/ 3K bath - monitor I/O, weights - Sevelamer w/ meals - cont dialysis renal diet - continue to dose drugs for ESRD - avoid nephrotoxins/NSAIDS - BP control - further recs per Dr. Duran Thank you for the consult Patient was discussed and evaluated with Dr. Duran
--- NOTE | 2018-03-02 08:08 | CP.PCM.PN ---
Subjective - Date & Time of Evaluation Date of Evaluation: 03/02/18 Time of Evaluation: 08:45 - Subjective Subjective: Nephrology progress note for Dr. Duran: Patient appears somnolent and is barely able to keep her eyes open. States she's not feeling well, undergoing detox. Denies cp or sob. Ros limited due to mentation Objective - Vital Signs/Intake and Output Vital Signs (last 24 hours): Temp Pulse Resp BP Pulse Ox 97 F L 66 18 117/75 100 03/01/18 21:40 03/02/18 05:58 03/02/18 05:58 03/02/18 05:58 03/02/18 05:58 - Medications Medications: Current Medications Acetaminophen (Tylenol 325mg Tab) 650 mg PO Q6 PRN PRN Reason: Pain, moderate (4-7) Last Admin: 03/01/18 20:36 Dose: 650 mg Al Hydrox/Mg Hydrox/Simethicone (Maalox 30 Ml) 30 ml PO TID PRN PRN Reason: Indigestion / Heartburn Clonidine HCl (Catapres) 0.1 mg PO Q6 PRN PRN Reason: withdrawal symptoms COW =5 Dicyclomine HCl (Bentyl) 10 mg PO Q6 PRN PRN Reason: Muscle spasm Diphenhydramine HCl (Benadryl) 50 mg PO Q6H PRN PRN Reason: itching, allergies Last Admin: 03/01/18 15:55 Dose: 50 mg Hydroxyzine HCl (Atarax) 25 mg PO Q6 PRN PRN Reason: Anxiety Last Admin: 03/01/18 20:36 Dose: 25 mg Loperamide HCl (Imodium) 2 mg PO Q8 PRN PRN Reason: Diarrhea Last Admin: 03/01/18 10:28 Dose: 2 mg Lorazepam (Ativan) 1 mg PO Q6H IRAM; Taper Stop: 03/06/18 07:59 Methadone HCl (Methadone) 0 mg PO Q24H IRAM; Taper Stop: 03/06/18 09:59 Mirtazapine (Remeron) 15 mg PO HS IRAM Ondansetron HCl (Zofran Tab) 4 mg PO Q8 PRN PRN Reason: Nausea/Vomiting Last Admin: 03/01/18 20:36 Dose: 4 mg Sevelamer Carbonate (Renvela) 800 mg PO TIDCC [facility] Last Admin: 03/01/18 18:13 Dose: Not Given Trazodone HCl (Desyrel) 50 mg PO HS PRN PRN Reason: Insomnia - Labs Labs: 02/28/18 20:46 02/28/18 20:46 - Constitutional Appears: No Acute Distress, Unkempt, Older Than Stated Age, Chronically Ill - Head Exam Head Exam: ATRAUMATIC, NORMAL INSPECTION, NORMOCEPHALIC - Eye Exam Eye Exam: Normal appearance - ENT Exam ENT Exam: Mucous Membranes Moist - Neck Exam Neck Exam: Normal Inspection - Respiratory Exam Respiratory Exam: Clear to Ausculation Bilateral, NORMAL BREATHING PATTERN. absent: Rhonchi, Wheezes, Respiratory Distress, Stridor - Cardiovascular Exam Cardiovascular Exam: REGULAR RHYTHM, +S1, +S2. absent: Murmur - GI/Abdominal Exam GI & Abdominal Exam: Soft, Normal Bowel Sounds. absent: Distended, Firm, Guarding, Rigid, Tenderness Additional comments: Obese abdomen - Extremities Exam Extremities Exam: Normal Inspection - Neurological Exam Additional comments: Somnolent - Psychiatric Exam Psychiatric exam: Depressed, Flat Affect - Skin Skin Exam: Warm Assessment and Plan (1) ESRD (end stage renal disease) on dialysis Assessment & Plan: - s/p HD yesterday, patient to undergo another session of HD to put patient back on schedule - Continue with Sevelamer with meals - cont dialysis renal diet - continue to dose drugs for ESRD - avoid nephrotox/NSAIDS - BP control Status: Acute - Assessment and Plan (Free Text) Plan: Further recommendations as per Dr. Duran.
--- NOTE | 2018-03-02 13:30 | PCM.PYCHPN ---
Psychiatric Progress Note - Psychiatric Progress Note Patient seen today, length of contact: 16 min Patient Chief Complaint: "I'm not feeling well and now my hand hurts" Problems Identified/Issues Discussed: The pt was seen, chart reviewed, case discussed with staff. Pt reports that she is still feeling unwell. Pt now complains of right hand pain that she attributes to carpal tunnel. Pt states she slept well yesterday and that her dialysis treatment went well. Pt reports that her appetite has gotten better, but she is still feeling depressed. The pt is compliant with medications and reports no side-effects. Symptoms are improving but needs more time to stabilize. Pt attends groups and activities. Support given, psycho-education provided. After care discussed. Medication Change: Yes (detox changes daily) Medical Record Reviewed: Yes Mental Status Examination - Cognitive Function Orientation: Person, Place, Situation, Time Memory: Intact Attention: WNL Concentration: Poor Association: Loose Fund of Knowledge: Poor - Mood Mood: Depressed - Affect Affect: Blunted - Speech Speech: Soft - Formal Thought Process Formal Thought Process: No Impairment (slowed) - Suicidal Ideation Suicidal Ideation: No - Homicidal Ideation Homicidal Ideation: No Goal/Treatment Plan - Goal/Treatment Plan Need for Continued Stay: Severe depression anxiety, Discharge may exacerbated symptoms, Severe functional impairment Progress Toward Problem(s) and Goals/Treatment Plan: Methadone detox for opioids Ativan detox for benzos Remeron for depression Renvela for dialysis As needed medications Maalox, Clonidine, Atarax, Zofran, Bentyl, Imodium, and Trazodone All risks, benefits and alternatives of the meds discussed, and the pt agreed and understood. Attend groups and activities Supportive therapy and psychoeducation [place] for abstinence CBT for relapse prevention Encourage MAT Refer to rehab or IOP, and self-help groups Attend groups and activities Individual therapy daily Psychoeducation and support daily Encourage compliance with meds and after care Refer to outpatient program Teach healthy lifestyle methods, i.e. diet, exercise, meditation Nephro help appreciated Will attend HD 3x/week - Estimated Date of D/C: 03/06/18
--- NOTE | 2018-03-03 08:01 | PCM.PYCHPN ---
Psychiatric Progress Note - Psychiatric Progress Note Patient seen today, length of contact: 16 min Patient Chief Complaint: I am not feeling well.' Problems Identified/Issues Discussed: Patient was seen and evaluated, chart reviewed and discussed the staff. She reports irritable mood but denies any feelings of hopelessness and helplessness. Patient reports withdrawal symptoms including nausea, vomiting, cramps, abdominal pain, shakes, sweating and joint pain. She denies any auditory or visual hallucinations. She is taking medication but denies any side effects. She needs to stay longer for further stabilization Supportive therapy was given. Medication Change: Yes Medical Record Reviewed: Yes Mental Status Examination - Cognitive Function Orientation: Person, Place, Situation, Time Memory: Intact Attention: WNL Concentration: Poor Association: WNL Fund of Knowledge: Poor - Mood Mood: Depressed - Affect Affect: Blunted, Flat - Speech Speech: Soft - Formal Thought Process Formal Thought Process: No Impairment (slowed) - Suicidal Ideation Suicidal Ideation: No - Homicidal Ideation Homicidal Ideation: No Goal/Treatment Plan - Goal/Treatment Plan Need for Continued Stay: Severe depression anxiety, Discharge may exacerbated symptoms, Severe functional impairment Progress Toward Problem(s) and Goals/Treatment Plan: Opioid Withdrawal Opioid Use d/o - severe Sedative hypnotic or anxiolytic withdrawal 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 Attend groups and activities Supportive therapy and psychoeducation [place] for abstinence CBT for relapse prevention Encourage MAT Refer to rehab or IOP, and self-help groups Attend groups and activities Individual therapy daily Psychoeducation and support daily Encourage compliance with meds and after care Refer to outpatient program Teach healthy lifestyle methods, i.e. diet, exercise, meditation
--- NOTE | 2018-03-03 23:59 | CP.PCM.PN ---
Subjective - Date & Time of Evaluation Date of Evaluation: 03/03/18 Time of Evaluation: 14:30 - Subjective Subjective: Patient very lethargic per nursing staff; not eating much; patient reporting some diarrhea; no vomiting; Objective - Vital Signs/Intake and Output Vital Signs (last 24 hours): Temp Pulse Resp BP Pulse Ox 98.6 F 63 19 133/94 H 99 03/03/18 21:22 03/03/18 21:22 03/03/18 21:22 03/03/18 21:22 03/03/18 21:22 - Medications Medications: Current Medications Acetaminophen (Tylenol 325mg Tab) 650 mg PO Q6 PRN PRN Reason: Pain, moderate (4-7) Last Admin: 03/01/18 20:36 Dose: 650 mg Al Hydrox/Mg Hydrox/Simethicone (Maalox 30 Ml) 30 ml PO TID PRN PRN Reason: Indigestion / Heartburn Clonidine HCl (Catapres) 0.1 mg PO Q6 PRN PRN Reason: withdrawal symptoms COW =5 Last Admin: 03/03/18 16:41 Dose: 0.1 mg Dicyclomine HCl (Bentyl) 10 mg PO Q6 PRN PRN Reason: Muscle spasm Last Admin: 03/02/18 18:09 Dose: 10 mg Diphenhydramine HCl (Benadryl) 50 mg PO Q6H PRN PRN Reason: itching, allergies Last Admin: 03/02/18 18:09 Dose: 50 mg Hydroxyzine HCl (Atarax) 25 mg PO Q6 PRN PRN Reason: Anxiety Last Admin: 03/03/18 05:58 Dose: 25 mg Loperamide HCl (Imodium) 2 mg PO Q8 PRN PRN Reason: Diarrhea Last Admin: 03/01/18 10:28 Dose: 2 mg Lorazepam (Ativan) 1 mg PO Q8H IRAM; Taper Stop: 03/06/18 07:59 Last Admin: 03/03/18 16:41 Dose: 1 mg Methadone HCl (Methadone) 15 mg PO Q24H IRAM; Taper Stop: 03/06/18 09:59 Last Admin: 03/03/18 10:44 Dose: 15 mg Mirtazapine (Remeron) 15 mg PO HS IRAM Last Admin: 03/03/18 21:25 Dose: 15 mg Ondansetron HCl (Zofran Tab) 4 mg PO Q8 PRN PRN Reason: Nausea/Vomiting Last Admin: 03/02/18 18:09 Dose: 4 mg Sevelamer Carbonate (Renvela) 800 mg PO TIDCC [facility] Last Admin: 03/03/18 16:41 Dose: 800 mg Trazodone HCl (Desyrel) 50 mg PO HS PRN PRN Reason: Insomnia Last Admin: 03/03/18 21:25 Dose: 50 mg Trazodone HCl (Desyrel) 100 mg PO HS PRN PRN Reason: Sleep Last Admin: 03/03/18 21:25 Dose: 100 mg - Labs Labs: 02/28/18 20:46 02/28/18 20:46 - Constitutional Appears: Non-toxic, No Acute Distress - Eye Exam Eye Exam: Normal appearance - Respiratory Exam Respiratory Exam: Clear to Ausculation Bilateral. absent: Respiratory Distress - Cardiovascular Exam Cardiovascular Exam: RRR, +S1, +S2 - GI/Abdominal Exam GI & Abdominal Exam: Soft. absent: Distended, Tenderness - Extremities Exam Additional comments: no significant leg edema; - Neurological Exam Neurological Exam: Alert, Awake - Skin Skin Exam: Warm. absent: Cyanosis Assessment and Plan (1) ESRD (end stage renal disease) on dialysis Assessment & Plan: Stable volume and electrolyte status; last HD yesterday, next for Monday per routine; Status: Chronic (2) Hypertensive CKD, ESRD on dialysis Assessment & Plan: BP mostly controlled off meds; received prn clonidine dose today; continue to monitor regularly; will likely need to be on standing dose of clonidine 0.1 mg bid to avoid rebound htn (reports being on 0.2 mg bid at home); Status: Acute (3) Anemia of renal disease Assessment & Plan: Hgb stable, above goal; will monitor periodically; Status: Chronic (4) Chronic kidney disease-mineral and bone disorder Assessment & Plan: Phos controlled, continue sevelamer 1 tab w/ meals; Status: Chronic
--- NOTE | 2018-03-04 21:44 | PCM.PYCHPN ---
Psychiatric Progress Note - Psychiatric Progress Note Patient seen today, length of contact: 16 min Patient Chief Complaint: I am still withdrawing.' Problems Identified/Issues Discussed: Patient was seen and evaluated, chart reviewed and discussed the staff. As per staff, patient is not feeling well and she is still withdrawing. She reports irritable mood but denies any feelings of hopelessness and helplessness. Patient reports withdrawal symptoms including nausea, vomiting, cramps, abdominal pain, shakes, sweating and joint pain. She denies any auditory or visual hallucinations. She is taking medication but denies any side effects. She needs to stay longer for further stabilization Supportive therapy was given. Medication Change: Yes Medical Record Reviewed: Yes Mental Status Examination - Cognitive Function Orientation: Person, Place, Situation, Time Memory: Intact Attention: WNL Concentration: Poor Association: WNL Fund of Knowledge: Poor - Mood Mood: Depressed - Affect Affect: Blunted, Flat - Speech Speech: Soft - Formal Thought Process Formal Thought Process: No Impairment (slowed) - Suicidal Ideation Suicidal Ideation: No - Homicidal Ideation Homicidal Ideation: No Goal/Treatment Plan - Goal/Treatment Plan Need for Continued Stay: Severe depression anxiety, Discharge may exacerbated symptoms, Severe functional impairment Progress Toward Problem(s) and Goals/Treatment Plan: Opioid Withdrawal Opioid Use d/o - severe Sedative hypnotic or anxiolytic withdrawal 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 Attend groups and activities Supportive therapy and psychoeducation [place] for abstinence CBT for relapse prevention Encourage MAT Refer to rehab or IOP, and self-help groups Attend groups and activities Individual therapy daily Psychoeducation and support daily Encourage compliance with meds and after care Refer to outpatient program Teach healthy lifestyle methods, i.e. diet, exercise, meditation Estimated Date of D/C: 03/06/18
--- NOTE | 2018-03-05 03:12 | CP.PCM.CON ---
<Christian Caraballo - Last Filed: 03/05/18 05:15> History of Present Illness - History of Present Illness History of Present Illness: PGY-[address] Cox Reason for Consult: Intractable vomiting, HTN Patient is a 57 year old female with past medical history of ESRD on HD (MWF, via AVF, since 2016, @ [facility], with Dr. Ceja), hypertension, anemia, and opiate dependency admitted to detox unit for opiate dependence. Medicine consulted for intractable vomiting, elevated BP. Per nurse, vomiting began at 12:30 AM, continued until 3:30 AM. Patient given zofran IM x2 overnight for vomiting, which she was refractory to. Continued to vomit up clonidine pills being given, per nurse. On examination, patient not seen actively vomiting, appears to be going through withdrawal. Nurse endorses nausea, decreased appetite, some diarrhea. 12 pt ROS limited due to patient's condition. PMHx: ESRD on HD (MWF, via AVF, since 2016, @ [facility], with Dr. Ceja), hypertension, anemia, substance abuse PSHx: cholecystectomy Allergies: NKDA Home Meds: as per chart Social: +heroin, xanax abuse, denies alcohol/tobacco use Family Hx: unknown Review of Systems - Review of Systems All systems: reviewed and no additional remarkable complaints except Review of Systems: as per HPI Past Patient History - Past Medical History & Family History Past Medical History?: Yes Past Family History: Reviewed and not pertinent - Past Social History Smoking Status: Former Smoker - CARDIAC Hx Hypertension: Yes - PULMONARY Hx Tuberculosis: No - NEUROLOGICAL Hx Seizures: No - RENAL Hx Renal Failure: Yes - HEMATOLOGICAL/ONCOLOGICAL Hx Human Immunodeficiency Virus (HIV): No - MUSCULOSKELETAL/RHEUMATOLOGICAL Hx Falls: No - GENITOURINARY/GYNECOLOGICAL Hx Sexually Transmitted Disorders: No - PSYCHIATRIC Hx Substance Use: Yes - SURGICAL HISTORY Hx Cholecystectomy: Yes - ANESTHESIA Hx Anesthesia: Yes Meds Allergies/Adverse Reactions: Allergies Allergy/AdvReac Type Severity Reaction Status Date / Time No Known Allergies Allergy Verified 12/20/17 13:53 - Medications Medications: Current Medications Acetaminophen (Tylenol 325mg Tab) 650 mg PO Q6 PRN PRN Reason: Pain, moderate (4-7) Last Admin: 03/01/18 20:36 Dose: 650 mg Al Hydrox/Mg Hydrox/Simethicone (Maalox 30 Ml) 30 ml PO TID PRN PRN Reason: Indigestion / Heartburn Amlodipine Besylate (Norvasc) 5 mg PO ONCE ONE Stop: 03/05/18 03:07 Clonidine HCl (Catapres) 0.1 mg PO Q6 PRN PRN Reason: withdrawal symptoms COW =5 Last Admin: 03/05/18 02:23 Dose: 0.1 mg Dicyclomine HCl (Bentyl) 10 mg PO Q6 PRN PRN Reason: Muscle spasm Last Admin: 03/05/18 01:26 Dose: 10 mg Diphenhydramine HCl (Benadryl) 50 mg PO Q6H PRN PRN Reason: itching, allergies Last Admin: 03/02/18 18:09 Dose: 50 mg Hydroxyzine HCl (Atarax) 25 mg PO Q6 PRN PRN Reason: Anxiety Last Admin: 03/04/18 16:03 Dose: 25 mg Loperamide HCl (Imodium) 2 mg PO Q8 PRN PRN Reason: Diarrhea Last Admin: 03/01/18 10:28 Dose: 2 mg Lorazepam (Ativan) 1 mg PO Q12H IRAM; Taper Stop: 03/06/18 07:59 Last Admin: 03/04/18 19:55 Dose: 1 mg Methadone HCl (Methadone) 10 mg PO Q24H IRAM; Taper Stop: 03/06/18 09:59 Last Admin: 03/04/18 09:30 Dose: 10 mg Mirtazapine (Remeron) 15 mg PO HS IRAM Last Admin: 03/04/18 22:21 Dose: 15 mg Ondansetron HCl (Zofran Tab) 4 mg PO Q8 PRN PRN Reason: Nausea/Vomiting Last Admin: 03/02/18 18:09 Dose: 4 mg Ondansetron HCl (Zofran Inj) 4 mg IM Q6H PRN PRN Reason: Nausea/Vomiting Last Admin: 03/05/18 01:58 Dose: 4 mg Prochlorperazine (Compazine) 10 mg IM ONCE ONE Stop: 03/05/18 03:05 Sevelamer Carbonate (Renvela) 800 mg PO TIDCC [facility] Last Admin: 03/04/18 17:00 Dose: Not Given Trazodone HCl (Desyrel) 50 mg PO HS PRN PRN Reason: Insomnia Last Admin: 03/04/18 22:22 Dose: 50 mg Trazodone HCl (Desyrel) 100 mg PO HS PRN PRN Reason: Sleep Last Admin: 03/04/18 22:22 Dose: 100 mg Physical Exam - Constitutional Appears: In Acute Distress Additional comments: going through withdrawal - Head Exam Head Exam: ATRAUMATIC, NORMAL INSPECTION, NORMOCEPHALIC - Eye Exam Eye Exam: EOMI, Normal appearance Pupil Exam: NORMAL ACCOMODATION - ENT Exam ENT Exam: Mucous Membranes Dry, Normal Exam - Neck Exam Neck exam: Positive for: Full Rom, Normal Inspection. Negative for: Tenderness - Respiratory Exam Respiratory Exam: Clear to Auscultation Bilateral, NORMAL BREATHING PATTERN. absent: Accessory Muscle Use, Rales, Rhonchi, Wheezes, Respiratory Distress, Stridor - Cardiovascular Exam Cardiovascular Exam: REGULAR RHYTHM, +S1, +S2 - GI/Abdominal Exam GI & Abdominal Exam: Normal Bowel Sounds, Soft. absent: Distended, Firm, Guarding, Organomegaly, Rebound, Tenderness - Extremities Exam Extremities exam: Positive for: normal capillary refill, normal inspection, pedal pulses present. Negative for: calf tenderness, pedal edema Additional comments: Left AVF +thrill +bruit - Neurological Exam Neurological exam: Alert, Oriented x3 - Skin Skin Exam: Dry, Intact, Normal Color, Warm Results - Vital Signs Recent Vital Signs: Last Vital Signs Temp 97.7 F 03/04/18 21:19 Pulse 85 03/05/18 02:26 Resp 18 03/04/18 21:19 BP 170/110 H 03/05/18 02:26 Pulse Ox 100 03/04/18 21:19 - Labs Result Diagrams: 02/28/18 20:46 02/28/18 20:46 Assessment & Plan - Assessment and Plan (Free Text) Assessment: 57 yo AA F with pmhx of ESRD on HD (MWF, via AVF, since 2017, @ [facility], with Dr. Ceja), hypertension, anemia, and opiate dependency admitted to detox unit for opiate dependence. Medicine consulted for intractable vomiting, elevated BP. Plan: Intractable vomiting -Patient not seen actively vomiting upon examination -appears to be going through continued signs of opioid withdrawal -no hematemesis noted -compazine 10 mg IM x1 given -zofran 4 mg IM q6 prn -zofran 4 mg PO q8 prn Hypertensive CKD ESRD ON HD -BP 170/110, elevation likely stress-induced -continue to monitor -Norvasc 5 mg PO x 1 given -Nephro recs (Dr. Duran) appreciated -BP mostly controlled off meds -received prn clonidine dose today; continue to monitor regularly Case discussed with Dr. Brooke Caraballo DO, PGY-1 <Agustin Cox - Last Filed: 03/05/18 06:32> Meds - Medications Medications: Current Medications Acetaminophen (Tylenol 325mg Tab) 650 mg PO Q6 PRN PRN Reason: Pain, moderate (4-7) Last Admin: 03/01/18 20:36 Dose: 650 mg Al Hydrox/Mg Hydrox/Simethicone (Maalox 30 Ml) 30 ml PO TID PRN PRN Reason: Indigestion / Heartburn Clonidine HCl (Catapres) 0.1 mg PO Q6 PRN PRN Reason: withdrawal symptoms COW =5 Last Admin: 03/05/18 02:23 Dose: 0.1 mg Dicyclomine HCl (Bentyl) 10 mg PO Q6 PRN PRN Reason: Muscle spasm Last Admin: 03/05/18 01:26 Dose: 10 mg Diphenhydramine HCl (Benadryl) 50 mg PO Q6H PRN PRN Reason: itching, allergies Last Admin: 03/02/18 18:09 Dose: 50 mg Hydroxyzine HCl (Atarax) 25 mg PO Q6 PRN PRN Reason: Anxiety Last Admin: 03/04/18 16:03 Dose: 25 mg Loperamide HCl (Imodium) 2 mg PO Q8 PRN PRN Reason: Diarrhea Last Admin: 03/01/18 10:28 Dose: 2 mg Lorazepam (Ativan) 1 mg PO Q12H IRAM; Taper Stop: 03/06/18 07:59 Last Admin: 03/05/18 05:38 Dose: 1 mg Methadone HCl (Methadone) 10 mg PO Q24H IRAM; Taper Stop: 03/06/18 09:59 Last Admin: 03/04/18 09:30 Dose: 10 mg Mirtazapine (Remeron) 15 mg PO HS IRAM Last Admin: 03/04/18 22:21 Dose: 15 mg Ondansetron HCl (Zofran Tab) 4 mg PO Q8 PRN PRN Reason: Nausea/Vomiting Last Admin: 03/02/18 18:09 Dose: 4 mg Ondansetron HCl (Zofran Inj) 4 mg IM Q6H PRN PRN Reason: Nausea/Vomiting Last Admin: 03/05/18 01:58 Dose: 4 mg Sevelamer Carbonate (Renvela) 800 mg PO TIDCC [facility] Last Admin: 03/04/18 17:00 Dose: Not Given Trazodone HCl (Desyrel) 50 mg PO HS PRN PRN Reason: Insomnia Last Admin: 03/04/18 22:22 Dose: 50 mg Trazodone HCl (Desyrel) 100 mg PO HS PRN PRN Reason: Sleep Last Admin: 03/04/18 22:22 Dose: 100 mg Results - Vital Signs Recent Vital Signs: Last Vital Signs Temp 98.8 F 03/05/18 05:46 Pulse 77 03/05/18 05:46 Resp 18 03/05/18 05:46 BP 176/106 H 03/05/18 05:46 Pulse Ox 98 03/05/18 05:46 - Labs Result Diagrams: 02/28/18 20:46 02/28/18 20:46 Assessment & Plan - Date & Time Date: 03/05/18 (I have seen and examined the patient. I agree with the findings and plan of care as documented by Dr. Caraballo. Consulted due to intractable vomiting and nausea. Received zofran without improvement. Compazine. Check electrolytes. Due to vomiting, unable to take in PO Clonidine. Causing hypertension to be uncontrolled. Norvasc x1. ESRD on dialysis. Nephro on board. Monitor for acute changes.) Time: 06:29 Attending/Attestation - Attestation I have personally seen and examined this patient.: Yes I have fully participated in the care of the patient.: Yes I have reviewed all pertinent clinical information: Yes
--- NOTE | 2018-03-05 07:47 | CP.PCM.PN ---
Subjective - Date & Time of Evaluation Date of Evaluation: 03/05/18 Time of Evaluation: 07:46 - Subjective Subjective: PGY-1 Concepcion Chambers D.O. Medicine progress note for Dr. Ybarra's service: Patient was seen and examined this morning. She is lying in bed and does not make eye contact. She says she is feeling "bad." She admits to stomach pain. She reports having diarrhea up until yesterday. She denies present nausea. She last vomited around 3AM, and her nausea was relieved with compazine. She denies having an appetite. She complains of diffuse abdominal pain. She is due for hemodialysis today. Objective - Vital Signs/Intake and Output Vital Signs (last 24 hours): Temp Pulse Resp BP Pulse Ox 98.8 F 76 18 174/107 H 98 03/05/18 05:46 03/05/18 07:13 03/05/18 05:46 03/05/18 07:13 03/05/18 05:46 - Medications Medications: Current Medications Acetaminophen (Tylenol 325mg Tab) 650 mg PO Q6 PRN PRN Reason: Pain, moderate (4-7) Last Admin: 03/01/18 20:36 Dose: 650 mg Al Hydrox/Mg Hydrox/Simethicone (Maalox 30 Ml) 30 ml PO TID PRN PRN Reason: Indigestion / Heartburn Clonidine HCl (Catapres) 0.1 mg PO Q6 PRN PRN Reason: withdrawal symptoms COW =5 Last Admin: 03/05/18 06:44 Dose: 0.1 mg Dicyclomine HCl (Bentyl) 10 mg PO Q6 PRN PRN Reason: Muscle spasm Last Admin: 03/05/18 01:26 Dose: 10 mg Diphenhydramine HCl (Benadryl) 50 mg PO Q6H PRN PRN Reason: itching, allergies Last Admin: 03/02/18 18:09 Dose: 50 mg Hydroxyzine HCl (Atarax) 25 mg PO Q6 PRN PRN Reason: Anxiety Last Admin: 03/04/18 16:03 Dose: 25 mg Loperamide HCl (Imodium) 2 mg PO Q8 PRN PRN Reason: Diarrhea Last Admin: 03/01/18 10:28 Dose: 2 mg Lorazepam (Ativan) 1 mg PO Q12H IRAM; Taper Stop: 03/06/18 07:59 Last Admin: 03/05/18 05:38 Dose: 1 mg Methadone HCl (Methadone) 10 mg PO Q24H IRAM; Taper Stop: 03/06/18 09:59 Last Admin: 03/04/18 09:30 Dose: 10 mg Mirtazapine (Remeron) 15 mg PO HS IRAM Last Admin: 03/04/18 22:21 Dose: 15 mg Ondansetron HCl (Zofran Tab) 4 mg PO Q8 PRN PRN Reason: Nausea/Vomiting Last Admin: 03/02/18 18:09 Dose: 4 mg Ondansetron HCl (Zofran Inj) 4 mg IM Q6H PRN PRN Reason: Nausea/Vomiting Last Admin: 03/05/18 01:58 Dose: 4 mg Sevelamer Carbonate (Renvela) 800 mg PO TIDCC IRAM Last Admin: 03/04/18 17:00 Dose: Not Given Trazodone HCl (Desyrel) 50 mg PO HS PRN PRN Reason: Insomnia Last Admin: 03/04/18 22:22 Dose: 50 mg Trazodone HCl (Desyrel) 100 mg PO HS PRN PRN Reason: Sleep Last Admin: 03/04/18 22:22 Dose: 100 mg - Labs Labs: 02/28/18 20:46 02/28/18 20:46 - Constitutional Appears: Non-toxic, No Acute Distress, Unkempt - Head Exam Head Exam: ATRAUMATIC, NORMAL INSPECTION - Eye Exam Eye Exam: Normal appearance - ENT Exam ENT Exam: Mucous Membranes Dry - Neck Exam Neck Exam: Normal Inspection - Respiratory Exam Respiratory Exam: NORMAL BREATHING PATTERN. absent: Respiratory Distress - Cardiovascular Exam Cardiovascular Exam: RRR - GI/Abdominal Exam GI & Abdominal Exam: Soft, Tenderness (diffuse). absent: Distended Additional comments: obese - Extremities Exam Extremities Exam: Normal Inspection - Neurological Exam Neurological Exam: Alert, Awake, Oriented x3 - Psychiatric Exam Psychiatric exam: Depressed, Flat Affect - Skin Skin Exam: Dry, Normal Color, Warm Assessment and Plan - Assessment and Plan (Free Text) Assessment: Patient is a 57 yo AA female who is admitted to the detox unit for opiate and benzo abuse. Hospitalists were consulted for nausea and vomitng and HTN. Patient is on HD MWF. Plan: Nausea and vomiting, acute, improving- likely related to withdrawal symptoms - Encourage oral hydration - f/u labs - Replete electrolytes PRN - Zofran 4 mg PO Q8H PRN - Maalox 30 mL PO TID PRN - Bentyl 10 mg PO Q6H PRN Diarrhea, acute - f/u C. diff Hypertension, chronic - Vitals Q8H - Clonidine 0.2 mg PO BID - Clonidine 0.1 mg PO Q6H PRN - Nephrology consulted (Dr. Duran) End stage renal disease on hemodialysis MWF - Renal diet - Sevelamer 800 mg PO TID - Nephrology consulted (Dr. Duran) Polysubstance use disorder- opiates, benzos - Management as per psychiatry - Tylenol 650 mg PO Q6H PRN - Clonidine 0.1 mg PO Q6H PRN - Ativan 1 mg PO daily- taper - Methadone 10 mg PO daily Code status: full code Case was discussed with attending, Dr. Ybarra.
--- NOTE | 2018-03-05 09:35 | CP.PCM.PN ---
<Jericho Hansen - Last Filed: 03/05/18 23:19> Subjective - Date & Time of Evaluation Date of Evaluation: 03/05/18 Time of Evaluation: 09:15 - Subjective Subjective: Jericho Hansen PGY2 Nephrology Consult for Dr. Duran Patient was seen and examined at bedside in detox unit. She states that she is nauseous and having episodes of emesis. BP is elevated. Medicine was consulted and symptoms attributed to the patient's opioid withdrawal. Nursing notes, VS/labs were reviewed. Objective - Vital Signs/Intake and Output Vital Signs (last 24 hours): Temp Pulse Resp BP Pulse Ox 100.2 F H 76 18 174/107 H 98 03/05/18 08:26 03/05/18 07:13 03/05/18 05:46 03/05/18 07:13 03/05/18 05:46 - Medications Medications: Current Medications Acetaminophen (Tylenol 325mg Tab) 650 mg PO Q6 PRN PRN Reason: Pain, moderate (4-7) Last Admin: 03/05/18 08:26 Dose: 650 mg Al Hydrox/Mg Hydrox/Simethicone (Maalox 30 Ml) 30 ml PO TID PRN PRN Reason: Indigestion / Heartburn Clonidine HCl (Catapres) 0.1 mg PO Q6 PRN PRN Reason: withdrawal symptoms COW =5 Last Admin: 03/05/18 06:44 Dose: 0.1 mg Clonidine HCl (Catapres) 0.2 mg PO BID IRAM Dicyclomine HCl (Bentyl) 10 mg PO Q6 PRN PRN Reason: Muscle spasm Last Admin: 03/05/18 08:26 Dose: 10 mg Diphenhydramine HCl (Benadryl) 50 mg PO Q6H PRN PRN Reason: itching, allergies Last Admin: 03/02/18 18:09 Dose: 50 mg Hydroxyzine HCl (Atarax) 25 mg PO Q6 PRN PRN Reason: Anxiety Last Admin: 03/04/18 16:03 Dose: 25 mg Loperamide HCl (Imodium) 2 mg PO Q8 PRN PRN Reason: Diarrhea Last Admin: 03/01/18 10:28 Dose: 2 mg Lorazepam (Ativan) 1 mg PO DAILY IRAM; Taper Stop: 03/06/18 07:59 Last Admin: 03/05/18 09:06 Dose: 1 mg Methadone HCl (Methadone) 10 mg PO Q24H IRAM; Taper Stop: 03/06/18 09:59 Last Admin: 03/05/18 09:06 Dose: 5 mg Mirtazapine (Remeron) 15 mg PO HS IRAM Last Admin: 03/04/18 22:21 Dose: 15 mg Ondansetron HCl (Zofran Tab) 4 mg PO Q8 PRN PRN Reason: Nausea/Vomiting Last Admin: 03/02/18 18:09 Dose: 4 mg Ondansetron HCl (Zofran Inj) 4 mg IM Q6H PRN PRN Reason: Nausea/Vomiting Last Admin: 03/05/18 01:58 Dose: 4 mg Sevelamer Carbonate (Renvela) 800 mg PO TIDCC IRAM Last Admin: 03/05/18 08:27 Dose: 800 mg Trazodone HCl (Desyrel) 50 mg PO HS PRN PRN Reason: Insomnia Last Admin: 03/04/18 22:22 Dose: 50 mg Trazodone HCl (Desyrel) 100 mg PO HS PRN PRN Reason: Sleep Last Admin: 03/04/18 22:22 Dose: 100 mg - Labs Labs: 02/28/18 20:46 02/28/18 20:46 - Constitutional Appears: Non-toxic, No Acute Distress - Head Exam Head Exam: ATRAUMATIC, NORMAL INSPECTION - Eye Exam Eye Exam: EOMI, Normal appearance - ENT Exam ENT Exam: Mucous Membranes Moist - Respiratory Exam Respiratory Exam: Clear to Auscultation Bilateral, NORMAL BREATHING PATTERN. absent: Wheezes - Cardiovascular Exam Cardiovascular Exam: RRR, +S1, +S2 - GI/Abdominal Exam GI & Abdominal Exam: Normal Bowel Sounds, Soft. absent: Distended, Tenderness - Extremities Exam Extremities exam: Positive for: normal inspection. Negative for: pedal edema Additional comments: Left AVF +thrill +bruit - Back Exam Back exam: NORMAL INSPECTION - Neurological Exam Neurological exam: Normal Reflexes - Psychiatric Exam Psychiatric exam: Normal Affect - Skin Skin Exam: Normal Color, Warm Assessment and Plan - Assessment and Plan (Free Text) Assessment: 57 year old female with a PMH of ESRD on HD (MWF, via AVF, since 2017, @ [facility], with Dr. Ceja), hypertension, anemia, and opiate dependency who presented to the detox unit for opiate dependence. We are consulted for dialysis and management of the patient's ESRD. ESRD - HD today as per normal schedular - monitor I/O, weights - Sevelamer w/ meals - cont dialysis renal diet - continue to dose drugs for ESRD - avoid nephrotoxins/NSAIDS - BP control w/ clonidine standing and PRN - further recs per Dr. Duran Case was reviewed and discussed with Dr. Duran <Steven Duran - Last Filed: 03/06/18 03:30> Objective - Vital Signs/Intake and Output Vital Signs (last 24 hours): Temp Pulse Resp BP Pulse Ox 97.4 F L 72 16 146/104 H 96 03/05/18 21:50 03/05/18 21:50 03/05/18 21:50 03/05/18 21:50 03/05/18 21:50 - Medications Medications: Current Medications Acetaminophen (Tylenol 325mg Tab) 650 mg PO Q6 PRN PRN Reason: Pain, moderate (4-7) Last Admin: 03/05/18 08:26 Dose: 650 mg Al Hydrox/Mg Hydrox/Simethicone (Maalox 30 Ml) 30 ml PO TID PRN PRN Reason: Indigestion / Heartburn Clonidine HCl (Catapres) 0.1 mg PO Q6 PRN PRN Reason: withdrawal symptoms COW =5 Last Admin: 03/05/18 17:25 Dose: 0.1 mg Clonidine HCl (Catapres) 0.2 mg PO BID IRAM Last Admin: 03/05/18 17:30 Dose: 0.2 mg Dicyclomine HCl (Bentyl) 10 mg PO Q6 PRN PRN Reason: Muscle spasm Last Admin: 03/05/18 08:26 Dose: 10 mg Diphenhydramine HCl (Benadryl) 50 mg PO Q6H PRN PRN Reason: itching, allergies Last Admin: 03/02/18 18:09 Dose: 50 mg Hydroxyzine HCl (Atarax) 25 mg PO Q6 PRN PRN Reason: Anxiety Last Admin: 03/05/18 16:39 Dose: 25 mg Loperamide HCl (Imodium) 2 mg PO Q8 PRN PRN Reason: Diarrhea Last Admin: 03/01/18 10:28 Dose: 2 mg Lorazepam (Ativan) 1 mg PO DAILY IRAM; Taper Stop: 03/06/18 07:59 Last Admin: 03/05/18 09:06 Dose: 1 mg Methadone HCl (Methadone) 5 mg PO Q24H IRAM; Taper Stop: 03/06/18 09:59 Last Admin: 03/05/18 09:06 Dose: 5 mg Methadone HCl (Methadone) 5 mg PO ONCE ONE Stop: 03/06/18 10:01 Mirtazapine (Remeron) 15 mg PO HS IRAM Last Admin: 03/05/18 22:04 Dose: Not Given Ondansetron HCl (Zofran Tab) 4 mg PO Q8 PRN PRN Reason: Nausea/Vomiting Last Admin: 03/02/18 18:09 Dose: 4 mg Ondansetron HCl (Zofran Inj) 4 mg IM Q6H PRN PRN Reason: Nausea/Vomiting Last Admin: 03/05/18 01:58 Dose: 4 mg Sevelamer Carbonate (Renvela) 800 mg PO TIDCC IRAM Last Admin: 03/05/18 16:39 Dose: 800 mg Trazodone HCl (Desyrel) 50 mg PO HS PRN PRN Reason: Insomnia Last Admin: 03/04/18 22:22 Dose: 50 mg Trazodone HCl (Desyrel) 100 mg PO HS PRN PRN Reason: Sleep Last Admin: 03/04/18 22:22 Dose: 100 mg - Labs Labs: 03/05/18 18:50 03/05/18 18:50 Assessment and Plan (1) ESRD (end stage renal disease) on dialysis Status: Chronic (2) Hypertensive CKD, ESRD on dialysis Status: Acute (3) Anemia of renal disease Status: Chronic (4) Chronic kidney disease-mineral and bone disorder Status: Chronic Attending/Attestation - Attestation I have personally seen and examined this patient.: Yes I have fully participated in the care of the patient.: Yes I have reviewed all pertinent clinical information, including history, physical exam and plan: Yes Notes (Text): Patient seen and examined; I agree with the resident's note as above with the following additions/edits: Patient with htn, opiate abuse, ESRD on HD, admitted to detox; HTN difficult to control lately after having been well controlled on admission, possibly due to withdrawal; home dose of clonidine 0.2 mg bid restarted; continue with clonidine 0.1 mg prn; Otherwise, patient not eating much; moderate hyperkalemia noted on labs at start of HD; will correct with 2K bath on HD; Anemia of ckd, hgb above goal, no need for EPO; CKD mineral bone disorder; phos low (due to decreased PO intake), will hold phos binders;
--- NOTE | 2018-03-05 15:12 | PCM.PYCHPN ---
Psychiatric Progress Note - Psychiatric Progress Note Patient seen today, length of contact: 16 min Patient Chief Complaint: "I'm tired" Problems Identified/Issues Discussed: The pt is seen, chart reviewed, case discussed with staff. Support and psychoeducation given, CBT and MT used briefly No new symptoms reported, improving slowly and needs more time No SEs from medications, risks discussed. After care discussed Medication Change: Yes (detox changes daily) Medical Record Reviewed: Yes Mental Status Examination - Cognitive Function Orientation: Person, Place, Situation, Time Memory: Intact Attention: WNL Concentration: Poor Association: WNL Fund of Knowledge: Poor - Mood Mood: Depressed - Affect Affect: Blunted, Flat - Speech Speech: Soft - Formal Thought Process Formal Thought Process: No Impairment (slowed) - Suicidal Ideation Suicidal Ideation: No - Homicidal Ideation Homicidal Ideation: No Goal/Treatment Plan - Goal/Treatment Plan Need for Continued Stay: Severe depression anxiety, Discharge may exacerbated symptoms, Severe functional impairment Progress Toward Problem(s) and Goals/Treatment Plan: Methadone detox for opioids Ativan detox for benzos Remeron for depression Renvela for dialysis As needed medications Maalox, Clonidine, Atarax, Zofran, Bentyl, Imodium, and Trazodone All risks, benefits and alternatives of the meds discussed, and the pt agreed and understood. Attend groups and activities Supportive therapy and psychoeducation MT for abstinence CBT for relapse prevention Encourage MAT Refer to rehab or IOP, and self-help groups Attend groups and activities Individual therapy daily Psychoeducation and support daily Encourage compliance with meds and after care Refer to outpatient program Teach healthy lifestyle methods, i.e. diet, exercise, meditation Nephro help appreciated Will attend HD 3x/week - Estimated Date of D/C: 03/06/18
[2018-03-05 19:01] LABS: BASO % 0.2 % (0.0-2.0); HEMOGLOBIN 12.1 g/dL (11.0-16.0); LYMPH # 1.4 K/uL (1.0-4.3); LYMPH % 12.3 % (20.0-40.0); MEAN CELL VOLUME 84.8 fL (81.0-99.0); MEAN CORPUSCULAR HEMOGLOBIN 27.1 pg (27.0-31.0); MEAN PLATELET VOLUME 8.9 fL (7.2-11.7); MONO # 0.3 K/uL (0.0-0.8); MONO % 2.5 % (0.0-10.0); NEUT # 9.9 K/uL (1.8-7.0); RBC 4.47 Mil/uL (3.80-5.20); RED CELL DISTRIBUTION WIDTH 13.7 % (11.5-14.5)
[2018-03-05 19:03] LABS: WHITE BLOOD COUNT 11.6 K/uL (4.8-10.8)
[2018-03-05 19:14] LABS: ALB/GLOB RATIO 1.2 (1.0-2.1); ALBUMIN 4.5 g/dL (3.5-5.0); CALCIUM 9.2 mg/dl (8.6-10.4)
[2018-03-06 05:57] VITALS: RESP 18
--- NOTE | 2018-03-06 07:17 | CP.PCM.PN ---
Subjective - Date & Time of Evaluation Date of Evaluation: 03/06/18 Time of Evaluation: 07:16 - Subjective Subjective: PGY-1 Concepcion Chambers D.O. Medicine progress note for Dr. Ybarra's service: Patient was seen and examined this morning. She is lying in bed not in acute distress. She does not open eyes to communicate. She complains of headache and stomach ache. She denies nausea, vomiting, diarrhea. She says she is tolerating PO liquids without issue. She had hemodialysis yesterday. Patient is re-examined later in the morning. She is in the day room drinking juice. She says she is feeling better and is ready to go home. She confirms outpatient follow-up with her director of litigation, Dr. Ceja. Objective - Vital Signs/Intake and Output Vital Signs (last 24 hours): Temp Pulse Resp BP Pulse Ox 98 F 75 18 124/83 97 03/06/18 05:56 03/06/18 05:56 03/06/18 05:56 03/06/18 05:56 03/06/18 05:56 - Medications Medications: Current Medications Acetaminophen (Tylenol 325mg Tab) 650 mg PO Q6 PRN PRN Reason: Pain, moderate (4-7) Last Admin: 03/05/18 08:26 Dose: 650 mg Al Hydrox/Mg Hydrox/Simethicone (Maalox 30 Ml) 30 ml PO TID PRN PRN Reason: Indigestion / Heartburn Clonidine HCl (Catapres) 0.1 mg PO Q6 PRN PRN Reason: withdrawal symptoms COW =5 Last Admin: 03/05/18 17:25 Dose: 0.1 mg Clonidine HCl (Catapres) 0.2 mg PO BID IRAM Last Admin: 03/05/18 17:30 Dose: 0.2 mg Dicyclomine HCl (Bentyl) 10 mg PO Q6 PRN PRN Reason: Muscle spasm Last Admin: 03/05/18 08:26 Dose: 10 mg Diphenhydramine HCl (Benadryl) 50 mg PO Q6H PRN PRN Reason: itching, allergies Last Admin: 03/02/18 18:09 Dose: 50 mg Hydroxyzine HCl (Atarax) 25 mg PO Q6 PRN PRN Reason: Anxiety Last Admin: 01/21/19 16:39 Dose: 25 mg Loperamide HCl (Imodium) 2 mg PO Q8 PRN PRN Reason: Diarrhea Last Admin: 03/01/18 10:28 Dose: 2 mg Lorazepam (Ativan) 1 mg PO DAILY [facility]; Taper Stop: 03/06/18 07:59 Last Admin: 03/05/18 09:06 Dose: 1 mg Methadone HCl (Methadone) 5 mg PO Q24H IRAM; Taper Stop: 03/06/18 09:59 Last Admin: 03/05/18 09:06 Dose: 5 mg Methadone HCl (Methadone) 5 mg PO ONCE ONE Stop: 03/06/18 10:01 Mirtazapine (Remeron) 15 mg PO HS IRAM Last Admin: 03/05/18 22:04 Dose: Not Given Ondansetron HCl (Zofran Tab) 4 mg PO Q8 PRN PRN Reason: Nausea/Vomiting Last Admin: 03/02/18 18:09 Dose: 4 mg Ondansetron HCl (Zofran Inj) 4 mg IM Q6H PRN PRN Reason: Nausea/Vomiting Last Admin: 03/05/18 01:58 Dose: 4 mg Sevelamer Carbonate (Renvela) 800 mg PO TIDCC IRAM Last Admin: 03/05/18 16:39 Dose: 800 mg Trazodone HCl (Desyrel) 50 mg PO HS PRN PRN Reason: Insomnia Last Admin: 03/04/18 22:22 Dose: 50 mg Trazodone HCl (Desyrel) 100 mg PO HS PRN PRN Reason: Sleep Last Admin: 03/04/18 22:22 Dose: 100 mg - Labs Labs: 03/05/18 18:50 03/05/18 18:50 - Additional Findings Additional findings: - Constitutional Appears: Non-toxic, No Acute Distress, Unkempt - Head Exam Head Exam: ATRAUMATIC, NORMAL INSPECTION - Eye Exam Eye Exam: Normal appearance - ENT Exam ENT Exam: Mucous Membranes Dry - Neck Exam Neck Exam: Normal Inspection - Respiratory Exam Respiratory Exam: NORMAL BREATHING PATTERN. absent: Respiratory Distress - Cardiovascular Exam Cardiovascular Exam: RRR - GI/Abdominal Exam GI & Abdominal Exam: Soft. absent: Distended, Tenderness Additional comments: obese - Extremities Exam Extremities Exam: Normal Inspection - Neurological Exam Neurological Exam: Alert, Awake, Oriented x3 - Psychiatric Exam Psychiatric exam: Depressed, Flat Affect - Skin Skin Exam: Dry, Normal Color, Warm Assessment and Plan - Assessment and Plan (Free Text) Assessment: Patient is a 57 yo AA female who is admitted to the detox unit for opiate and benzo abuse. Hospitalists were consulted for nausea and vomitng and HTN. Patient is on HD MWF. Patient's symptoms have resolved. She is tolerating PO diet and meds. Plan: Nausea and vomiting, acute, resolved- likely related to withdrawal symptoms - Encourage oral hydration - Replete electrolytes PRN - Zofran 4 mg PO or IM Q8H PRN - Maalox 30 mL PO TID PRN - Bentyl 10 mg PO Q6H PRN Hypertension, chronic - Vitals Q8H - Clonidine 0.2 mg PO BID - Clonidine 0.1 mg PO Q6H PRN - Nephrology consulted (Dr. Duran) End stage renal disease on hemodialysis MWF - Renal diet - Sevelamer 800 mg PO TID - Nephrology consulted (Dr. Duran) Polysubstance use disorder- opiates, benzos - Management as per psychiatry - Tylenol 650 mg PO Q6H PRN - Clonidine 0.1 mg PO Q6H PRN - Methadone and Ativan tapers Depression - Management as per psychiatry - Remeron 15 mg PO QHS Code status: full code Case was discussed with attending, Dr. Ybarra. Patient is medically stabilized for discharge. She was instructed to continue regular follow-up with her director of litigation.
--- NOTE | 2018-03-06 09:55 | PCM.PYCHDC ---
Mental Status Examination - Mental Status Examination Orientation: Person Discharge Summary - Discharge Note Laboratory Data: Abnormal Lab Results 03/05/18 03/05/18 18:50 18:50 WBC 11.6 H D RBC 4.47 Hgb 12.1 Hct 37.9 MCV 84.8 MCH 27.1 MCHC 32.0 L RDW 13.7 Plt Count 195 MPV 8.9 Neut % (Auto) 85.0 H Lymph % (Auto) 12.3 L Mcdowell % (Auto) 2.5 Eos % (Auto) 0.0 Baso % (Auto) 0.2 Neut # (Auto) 9.9 H Lymph # (Auto) 1.4 Mcdowell # (Auto) 0.3 Eos # (Auto) 0.0 Baso # (Auto) 0.0 Sodium 133 Potassium 6.1 H Chloride 98 Carbon Dioxide 20 L Anion Gap 21 H BUN 71 H Creatinine 14.5 H* Est GFR ( Amer) 3 Est GFR (Non-Af Amer) 3 Random Glucose 138 H Calcium 9.2 Phosphorus 2.1 L Magnesium 2.2 Total Bilirubin 0.9 AST 40 H D ALT 25 Alkaline Phosphatase 91 Total Protein 8.1 Albumin 4.5 Globulin 3.6 Albumin/Globulin Ratio 1.2 Consultations:: List each consultation separately and include: 1. Reason for request. 2. Findings. 3. Follow-up Summary of Hospital Course include:: 1. Description of specific treatment plan utilized for patients during their course of treatmen. 2. Summarize the time- course for resolution of acute symptoms and/or regressed behaviors. 3. Describe issues identified and worked on during hospitalization. 4. Describe medication utilized. 5. Describe medical problems identified and treated. 6. Reassessment of suicide risk Summary of Hospital Course: She is seen, chart reviewed and case discussed. She is known from a previous admission. This is a 57 yo AAF, single, with 5 children (34 yo, 25 yo, 23 yo, 20 yo,14 yo), lives together with her brother and his two children, and her younger son and daughter, unemployed on disability, with PMHx significant for ESRD who presented to the ED requesting detox for heroin again. Patient states that she was sober for 18 years until relapse again, detoxed here but relapsed quickly. She estimates snorting 20 bags/day of heroin and 4-5 tablets of 1 mg xanax/day, again. She denies any cocaine, painkiller, ETOH or tobacco use. No other complaints are noted at this time but low mood and anxiety. No MAT and she is not interested Not suicidal or homicidal, no AVH or delusions. Detox Hx: x5 in the past Rehab Hx: x2 [facility] Medical Hx: Hep C, ESRD on HD (MWF) (dx in 2017), HTN Psych Hx: depression Fam Hx: sister also uses heroin She will go to [facility]. - Diagnosis (1) Opioid use disorder, severe, dependence Current Visit: Yes Status: Acute (2) Sedative, hypnotic or anxiolytic use disorder, severe, dependence Current Visit: No Status: Acute - Final Diagnosis (DSM 5) Condition upon Discharge: STABLE Disposition: HOME/ ROUTINE Follow-up Treatment Plan: Methadone detox for opioids Ativan detox for benzos Remeron for depression Renvela for dialysis As needed medications Maalox, Clonidine, Atarax, Zofran, Bentyl, Imodium, and Trazodone All risks, benefits and alternatives of the meds discussed, and the pt agreed and understood. Attend groups and activities Supportive therapy and psychoeducation NC for abstinence CBT for relapse prevention Encourage MAT Refer to rehab or IOP, and self-help groups Attend groups and activities Individual therapy daily Psychoeducation and support daily Encourage compliance with meds and after care Refer to outpatient program Teach healthy lifestyle methods, i.e. diet, exercise, meditation Nephro help appreciated Will attend HD 3x/week - Prescriptions/Medication Reconciliation: hydrOXYzine HCl [Atarax] 25 mg PO BID PRN #60 tab PRN Reason: Anxiety Mirtazapine [Remeron] 15 mg PO HS #30 tab Sevelamer Carbonate [Renvela] 800 mg PO TIDCC #90 tab traZODone [Desyrel] 100 mg PO HS PRN #30 tab PRN Reason: Sleep
[2018-03-06 13:01] VITALS: BP 118/87; PULSE 78; TEMP 97.8; O2SAT 97
--- NOTE | 2018-03-06 13:53 | CP.PCM.PN ---
Subjective - Date & Time of Evaluation Date of Evaluation: 03/06/18 Time of Evaluation: 13:45 - Subjective Subjective: Nephrology progress note for Dr. Duran's service Patient states she's ready to go home. States she ate her lunch with no nausea or vomiting. No diarrhea, no cp, sob, or headache. Objective - Vital Signs/Intake and Output Vital Signs (last 24 hours): Temp Pulse Resp BP Pulse Ox 97.8 F 78 18 118/87 97 03/06/18 12:58 03/06/18 12:58 03/06/18 12:58 03/06/18 12:58 03/06/18 12:58 - Medications Medications: Current Medications Acetaminophen (Tylenol 325mg Tab) 650 mg PO Q6 PRN PRN Reason: Pain, moderate (4-7) Last Admin: 03/06/18 09:43 Dose: 650 mg Al Hydrox/Mg Hydrox/Simethicone (Maalox 30 Ml) 30 ml PO TID PRN PRN Reason: Indigestion / Heartburn Clonidine HCl (Catapres) 0.1 mg PO Q6 PRN PRN Reason: withdrawal symptoms COW =5 Last Admin: 03/05/18 17:25 Dose: 0.1 mg Clonidine HCl (Catapres) 0.2 mg PO BID IRAM Last Admin: 03/06/18 09:44 Dose: 0.2 mg Dicyclomine HCl (Bentyl) 10 mg PO Q6 PRN PRN Reason: Muscle spasm Last Admin: 03/05/18 08:26 Dose: 10 mg Diphenhydramine HCl (Benadryl) 50 mg PO Q6H PRN PRN Reason: itching, allergies Last Admin: 03/02/18 18:09 Dose: 50 mg Hydroxyzine HCl (Atarax) 25 mg PO Q6 PRN PRN Reason: Anxiety Last Admin: 03/05/18 16:39 Dose: 25 mg Loperamide HCl (Imodium) 2 mg PO Q8 PRN PRN Reason: Diarrhea Last Admin: 03/01/18 10:28 Dose: 2 mg Mirtazapine (Remeron) 15 mg PO HS IRAM Last Admin: 03/05/18 22:04 Dose: Not Given Ondansetron HCl (Zofran Tab) 4 mg PO Q8 PRN PRN Reason: Nausea/Vomiting Last Admin: 03/02/18 18:09 Dose: 4 mg Ondansetron HCl (Zofran Inj) 4 mg IM Q6H PRN PRN Reason: Nausea/Vomiting Last Admin: 03/05/18 01:58 Dose: 4 mg Sevelamer Carbonate (Renvela) 800 mg PO TIDCC IRAM Last Admin: 03/05/18 16:39 Dose: 800 mg Trazodone HCl (Desyrel) 50 mg PO HS PRN PRN Reason: Insomnia Last Admin: 03/04/18 22:22 Dose: 50 mg Trazodone HCl (Desyrel) 100 mg PO HS PRN PRN Reason: Sleep Last Admin: 03/04/18 22:22 Dose: 100 mg - Labs Labs: 03/05/18 18:50 03/05/18 18:50 - Constitutional Appears: No Acute Distress, Older Than Stated Age, Chronically Ill - Head Exam Head Exam: ATRAUMATIC, NORMAL INSPECTION, NORMOCEPHALIC - Eye Exam Eye Exam: Normal appearance Pupil Exam: NORMAL ACCOMODATION - ENT Exam ENT Exam: Mucous Membranes Moist - Neck Exam Neck Exam: Normal Inspection - Respiratory Exam Respiratory Exam: Clear to Ausculation Bilateral, NORMAL BREATHING PATTERN. absent: Rales, Rhonchi, Wheezes, Respiratory Distress, Stridor - Cardiovascular Exam Cardiovascular Exam: REGULAR RHYTHM, +S1, +S2. absent: Murmur - GI/Abdominal Exam GI & Abdominal Exam: Soft, Normal Bowel Sounds. absent: Distended, Firm, Guarding, Rigid, Tenderness - Extremities Exam Extremities Exam: Normal Inspection. absent: Pedal Edema - Back Exam Back Exam: NORMAL INSPECTION - Neurological Exam Neurological Exam: Alert, Awake, Oriented x3 - Psychiatric Exam Psychiatric exam: Depressed, Normal Mood - Skin Skin Exam: Dry, Warm Additional comments: Left sided avf with strong pulse and good thrill Assessment and Plan (1) ESRD (end stage renal disease) on dialysis Assessment & Plan: - S/p HD yesterday, patient is getting discharged from the detox unit, states she will resume the HD at her regularly scheduled center ( 2 blocks from her home) - BP currently controlled - Patient to get a script of clonidine 0.2 mg BID upon discharged ( script giving by medicine team) - monitor I/O, weights - To continue with sevelamer w/ meals Status: Chronic
== END 2018-03-06 14:45 | disposition home or self-care (01) | DRG 895 ==
LOC: C.ER 18:46 → C.7D 21:55
PROVIDERS: ADMIT Psychiatry & Neurology Psychiatry; ATTEND Psychiatry & Neurology Psychiatry
PROC: HZ2ZZZZ Detoxification Services for Substance Abuse Treatment (ICD-10-PCS; principal; 2018-02-28)
PROC: HZ46ZZZ Group Counseling for Substance Abuse Treatment, Psychoeducation (ICD-10-PCS; 2018-02-28)
PROC: HZ91ZZZ Pharmacotherapy for Substance Abuse Treatment, Methadone Maintenance (ICD-10-PCS; 2018-02-28)
PROC: GZ3ZZZZ Medication Management (ICD-10-PCS; 2018-02-28)
PROC: HZ59ZZZ Individual Psychotherapy for Substance Abuse Treatment, Supportive (ICD-10-PCS; 2018-02-28)
PROC: 5A1D70Z Performance of Urinary Filtration, Intermittent, Less than 6 Hours Per Day (ICD-10-PCS; 2018-03-02)
PROC: 5A1D70Z Performance of Urinary Filtration, Intermittent, Less than 6 Hours Per Day (ICD-10-PCS; 2018-03-05)
DX: F11.23 Opioid dependence with withdrawal (principal); F13.239 Sedative, hypnotic or anxiolytic dependence with withdrawal, unspecified; F32.1 Major depressive disorder, single episode, moderate; I12.0 Hypertensive chronic kidney disease with stage 5 chronic kidney disease or end stage renal disease; N18.6 End stage renal disease; D63.1 Anemia in chronic kidney disease; F41.9 Anxiety disorder, unspecified; N25.0 Renal osteodystrophy; B18.2 Chronic viral hepatitis C; Z87.891 Personal history of nicotine dependence; Z90.49 Acquired absence of other specified parts of digestive tract; Z99.2 Dependence on renal dialysis